=== PATIENT | female | born 1935 | race Caucasian/White ===

== ENCOUNTER → 2017-03-16 | Outpatient (CLI) | payer OTHER ==
[~2017-03-16] MED LIST: ALL60 PO; AMLO2.5T PO; ASPEC81 PO; FSM70 PO; HYDC25 PO; LRT5 PO; MULT-506 PO
--- NOTE | 2017-03-16 15:34 | MAMMOGRAPHY REPORT ---
BILATERAL DIGITAL SCREENING MAMMOGRAM WITH CAD: 03/16/2017 CLINICAL HISTORY: Routine screening. Patient has no complaints. TECHNIQUE: Current study was also evaluated with a Computer Aided Detection (CAD) system. Bilateral CC and MLO views were obtained. COMPARISON: Comparison is made to exams dated: 03/15/2016 mammogram, 03/12/2015 mammogram, 10/27/2013 ma mmogram, 10/25/2012 mammogram, 10/24/2011 mammogram, and 09/02/2010 mammogram - [facility] nter. BREAST COMPOSITION: There are scattered areas of fibroglandular density in both breasts. FINDINGS: No suspicious masses, calcifications, or areas of architectural distortion are noted in ei ther breast. There has been no significant interval change compared to prior exams. IMPRESSION: ACR BI-RADS CATEGORY 1: NEGATIVE There is no mammographic evidence of malignancy. A 1 year screening mammogram is recommended. The pa tient will receive written notification of the results. Approximately 10% of breast cancers are not detected with mammography. A negative mammographic report should not delay biopsy if a clinically suggestive mass is present. Negra Daly M.D. /:03/16/2017 14:57:00 [employer] Professor: Susy RAMSAY(Brittani)(Bud)(BD), [facility] letter sent: Normal 1/2 BI-RADS Code: ACR BI-RADS Category 1: Negative
== END | disposition home or self-care (01) ==
LOC: C.MAMM 13:04
PROVIDERS: ATTEND Family Medicine
DX: Z12.31 Encounter for screening mammogram for malignant neoplasm of breast (principal)

== ENCOUNTER 2023-11-21 12:46 | Inpatient (IN) ==
--- NOTE | 2023-11-21 13:38 | Emergency Department Note ---
History of Present Illness General Chief complaint: Fall Stated complaint: FALLS, WOUND ON LEG Time Seen by Provider: 11/21/23 13:19 Source: patient, RN notes reviewed and old records reviewed (11/15/23-wound care visit for venous insufficiency on the legs) Mode of arrival: EMS Limitations: no limitations History of Present Illness This patient is a 88-year-old female who was brought in by EMS after being found on her floor for 2 days. When I talked to her she seems to answer most questions appropriately but very vaguely so the history is uncertain. She is not sure how she was on the floor but says that she thinks was there for 2 days she called a friend to call the police. She is being treated for lower extremity ulcers with stasis. She is on Lasix. She feels weak all over but no focal or numbness weakness. no chest pain. No headache she is not sure if she hit her head or not denies abdominal pain. She says she is urinating a lot. No dark-colored urine. Home Medications Medication Instructions Recorded Confirmed Type calcium citrate 250 mg 1 tab PO BID 10/11/23 11/21/23 History calcium-vitamin D3 5 mcg (200 unit) tablet cyclosporine 0.05 % eye drops in a 1 drp ophthalmic (eye) Q12H 10/11/23 11/21/23 History dropperette (Restasis) epinephrine 0.3 mg/0.3 mL 0.3 mg IM Q4H PRN Allergic Reaction 10/11/23 11/21/23 History injection, auto-injector (EpiPen) furosemide 20 mg tablet 20 mg PO DAILY 10/11/23 11/21/23 History levothyroxine 50 mcg capsule 50 mcg PO Q OTHER DAY 10/11/23 11/21/23 History levothyroxine 75 mcg capsule 75 mcg PO Q OTHER DAY 10/11/23 11/21/23 History multivitamin 1 tab PO DAILY 10/11/23 11/21/23 History cephalexin 500 mg capsule 500 mg PO TID 10 days #30 caps 11/12/23 11/21/23 Rx Allergies Allergy/AdvReac Type Severity Reaction Status Date / Time Sulfa (Sulfonamide Allergy Mild Rash Unverified 11/15/23 14:26 Antibiotics) Past Med/Surg History Medical History (Updated 11/21/23 @ 18:26 by Martir Ocampo MD) Chronic pansinusitis Arthritis of hand Age-related osteoporosis without current pathological fracture Hypothyroidism Tubular adenoma History of colon polyps Sciatica Prediabetes HTN, goal below 150/90 Chronic nonallergic rhinitis Surgical History S/P radioactive iodine thyroid ablation Family History Other Hx musculoskeletal disorder Social History Smoking Status: Former smoker Smoking End Date: 1981; Hx Alcohol Use: No Hx Substance Use: No Preferred Language: German Communication Ability: Effective Visual Impairment: No Limitations Hearing Ability: Normal Digital Computer Operator Required: No Beliefs That Will Affect Care: None Current Living Situation: Alone current occupational status: disabled Feels Safe at Home: Yes Diet: diabetic and ideal protein Diet Comment: educated on increasing protein, vitamin c, d and zinc Assistive Devices: Walker Review of Systems A total of 10 systems reviewed and were otherwise negative Physical Exam Vital Signs Vital Signs - 24 hr 11/21/23 12:48 11/21/23 13:40 11/21/23 14:58 Temperature 35.7 C L Temperature Source Skin Pulse Rate 63 61 Pulse Rate [Apical] 51 L Pulse Rhythm [Apical] Regular Pulse Strength [Apical] Normal Respiratory Rate 18 16 Respiratory Effort / Characteristics Non-Labored Spontaneous Respiratory Depth Normal Respiratory Pattern Regular Blood Pressure 172/84 H Blood Pressure [Right Arm] 177/87 H Blood Pressure Mean 113 Blood Pressure Mean [Right Arm] 117 Pulse Oximetry 97 94 Oxygen Delivery Method Room Air Sepsis Recent Fever Within 48 Hours No Sepsis New/Unexplained Change in Mental Status No Sepsis Action Taken by Nursing No Action Required 11/21/23 14:59 Temperature Temperature Source Pulse Rate 63 Pulse Rate [Apical] Pulse Rhythm [Apical] Pulse Strength [Apical] Respiratory Rate 16 Respiratory Effort / Characteristics Respiratory Depth Respiratory Pattern Blood Pressure Blood Pressure [Right Arm] Blood Pressure Mean Blood Pressure Mean [Right Arm] Pulse Oximetry 94 Oxygen Delivery Method Room Air Sepsis Recent Fever Within 48 Hours Sepsis New/Unexplained Change in Mental Status Sepsis Action Taken by Nursing General: Well developed well nourished very slender older female who appears in no acute distress, breathing comfortably on room air. Normal speech, nonslurred. She does answer questions appropriately but vaguely HEENT: Normal cephalic atraumatic. Pupils are equal round and reactive to light. Extraocular movements are intact. Oropharynx is pink with moist mucous membranes. No swelling of the mouth lips or tongue. Neck: Supple with a midline trachea. No meningeal signs or stiffness, no JVD or bruits. No Stridor. Chest: Clear to auscultation bilaterally. No wheezes or rhonchi. No increased work of breathing. Heart: Regular rate and rhythm without murmurs or gallops. Abdomen: Soft nontender, nondistended without rebound guarding or rigidity. Extremities: No cyanosis clubbing. She does have some skin breakdown/blisters on her shins bilaterally no overt redness. No crepitus. She does have trace to 1+ lower extremity edema. Spine/Back. Non tender to palpation. No CVA tenderness Skin: Good turgor without rashes. Neurologic exam: Cranial nerves two through 12 are intact. Motor and sensation are intact and symmetrical throughout. Course Administered Medications Discontinued Medications Sodium Chloride (Nss) 250 mls @ 999 mls/hr IV .Q16M ONE Stop: 11/21/23 13:47 Last Infusion: 11/21/23 14:40 Dose: Infused Documented By: Admin: 11/21/23 14:11 Dose: 999 mls/hr Documented By: SUNG Ceftriaxone Sodium 2,000 mg/ (Dextrose) 50 mls @ 100 mls/hr IV NOW STA; Protocol Stop: 11/21/23 17:04 Last Admin: 11/21/23 17:01 Dose: 100 mls/hr Documented By: SUSAN Medical Decision Making Differential Diagnosis Rhabdomyolysis, fall, traumatic injuries, dehydration, electrolyte or metabolic abnormality, sepsis, CHF, intra-abdominal process, intracranial process Medical Records Attestation: I reviewed the patient's medical records. Home Medications Current Medication List: was personally reviewed by me Laboratory Data Attestation: I reviewed the patient's lab results. 11/21/23 13:15 11/21/23 13:15 Lab Results 11/21/23 11/21/23 Range/Units 13:15 14:45 WBC 7.41 (4.8-10.8) K/ul RBC 4.81 (4.20-5.40) M/uL Hgb 14.9 (12.0-16.0) g/dl Hct 45.1 (37.0-47.0) % MCV 93.8 (80.0-100.0) fL MCH 31.0 (25.0-34.0) pg MCHC 33.0 (32.0-36.0) g/dL RDW Std Deviation 50.1 H (36.4-46.3) fL RDW Coeff of Ghassan 14.6 H (11.5-14.5) % Plt Count 191 (130-400) K/uL MPV 10.7 (9.4-12.4) fL Immature Gran % (Auto) 1.9 % Neut % (Auto) 83.0 % Lymph % (Auto) 6.5 % [place] % (Auto) 7.6 % Eos % (Auto) 0.3 % Baso % (Auto) 0.7 % Neut # (Auto) 6.16 (1.40-6.50) K/uL Lymph # (Auto) 0.48 L (1.20-3.40) K/uL [place] # (Auto) 0.56 (0.11-0.59) K/uL Eos # (Auto) 0.02 (0.00-0.50) K/uL Baso # (Auto) 0.05 (0.00-0.20) K/uL Immature Gran # (Auto) 0.14 (0.01-0.20) K/uL Sodium 141 (136-145) mmol/L Potassium 3.5 (3.5-5.1) mmol/L Chloride 104 (98-107) mmol/L Carbon Dioxide 30 (21-32) mmol/L Anion Gap 7 (3-11) BUN 48 H (6-23) mg/dl Creatinine 1.00 (0.6-1.2) mg/dl Est Cr Clr Drug Dosing Not Reportable Est GFR ( Amer) 58.3 ml/min Est GFR (Non-Af Amer) 50.3 ml/min BUN/Creatinine Ratio 48.0 H (10-20) Glucose 112 H (70-99(Fasting)) mg/dl Lactate 1.4 (0.4-2.0) mmol/L Calcium 9.2 (8.6-10.3) mg/dl Magnesium 2.2 (1.7-2.4) mg/dl Total Bilirubin 0.7 (0.2-1.0) mg/dl Direct Bilirubin 0.1 (0-0.2) mg/dl AST 20 (13-39) U/L ALT 19 (7-52) U/L Alkaline Phosphatase 81 (34-104) U/L Total Creatine Kinase 71 (26-192) U/L Troponin I High Sens 14.3 H (0-14) pg/ml Total Protein 6.9 (6.0-8.3) gm/dl Albumin 3.5 (3.4-5.0) gm/dl Procalcitonin 0.35 (0-0.5) ng/ml TSH 22.399 H (0.300-4.500) uIu/ml Free T4 0.86 (0.61-1.60) ng/dl Urine Color Yellow Urine Appearance Clear (Clear) Urine pH 5.0 (4.5-7.5) Ur Specific [place] 1.010 (1.000-1.030) Urine Protein Negative (Negative) Urine Glucose (UA) Negative (Negative) Urine Ketones Negative (Negative) Urine Blood Negative (Negative) Urine Nitrite Negative (Negative) Urine Bilirubin Negative (Negative) Urine Urobilinogen Negative (Negative) Ur Leukocyte Esterase Negative (Negative) Imaging Data Attestation: I personally reviewed and interpreted this imaging study as follows: My Impression: Chest x-rayno acute infiltrate, failure, pneumothorax CT of the headhemorrhage or mass effect seen. Radiologist's Impression: Abdomen/Pelvis CT 11/21/23 13:30 CT OF THE ABDOMEN AND PELVIS WITHOUT CONTRAST CLINICAL HISTORY: fall, on floor X 2 days COMPARISON STUDY: No previous studies for comparison. TECHNIQUE: Axial images of the abdomen and pelvis were obtained without IV contrast. Images were reviewed in the axial, sagittal, and coronal planes. Automated exposure control was utilized for the study. A dose lowering technique was utilized adhering to the principles of ALARA. FINDINGS: This exam is significantly compromised from a technical standpoint due to difficulty positioning and lack of contrast. No hemoperitoneum or pneumoperitoneum is present. There is moderate elevation of the right hemidiaphragm. No definite evidence for traumatic injury to the solid abdominal viscera although sensitivity diminished on this exam. There is no free fluid. No evidence for a bowel obstruction. A Quick balloon within the bladder is present. Lumbar spine levoscoliosis is incidentally noted. No acute fractures identified within the visualized skeletal structures. IMPRESSION: Exam significantly compromised from a technical standpoint, as described above. However, no acute traumatic findings identified within the abdomen or pelvis. ACT 112: Negative or not required by law. Electronically signed by: Carlos Ferreira M.D. 11/21/2023 2:[address] 11/21/23 13:[address] DOSE: HISTORY: fall TECHNIQUE: Multiaxial CT images of the cervical spine were performed and reformatted in the sagittal and coronal plane without the use of contrast. A dose lowering technique was utilized adhering to the principles of ALARA. COMPARISON: None. FINDINGS: No acute fracture or subluxation within the cervical spine. Prevertebral soft tissues and the C1-C2 interval are intact. Mild to moderate degenerative changes within the cervical spine. There is a subacute to chronic mild superior endplate compression deformity at T3. IMPRESSION: 1. No fractures within the cervical spine. 2. A subacute to chronic mild superior endplate compression deformity at T3. ACT 112: Negative or not required by law. Electronically signed by: Augustine Kerr M.D. 11/21/2023 2:[address] 11/21/23 13:30 CT OF THE CHEST WITHOUT IV CONTRAST CLINICAL HISTORY: Fall. COMPARISON STUDY: Chest radiographs October 22, 2007 and chest radiograph performed earlier today. TECHNIQUE: Axial images of the chest were obtained without IV contrast. Images were reviewed in the axial, sagittal, and coronal planes. IV contrast was not administered for this examination. Automated exposure control was utilized for the study. A dose lowering technique was utilized adhering to the principles of ALARA. FINDINGS: This exam is compromised given difficulty positioning and lack of IV contrast. No mediastinal hematoma is identified. There is no evidence for traumatic injury to the thoracic aorta on unenhanced exam. No pericardial effusion is present. Moderate elevation of the right hemidiaphragm is noted. No pneumothorax or pleural effusion is present. There is no pulmonary contusion. Several old left-sided rib fractures noted. There is chronic deformity anterior inferior right chest wall. Mild loss of height of the superior endplates of T3, T4 and T5 are noted with sclerosis. Venous gas is likely related to IV insertion. The abdomen and pelvis CT will be reported separately. IMPRESSION: 1. Technically compromised exam given difficulty positioning. No acute traumatic findings within the chest. 2. Subacute to chronic mild T3, T4 and T5 compression fractures. Several old left-sided rib fractures. 3. Moderate elevation of the right hemidiaphragm. ACT 112: Negative or not required by law. Electronically signed by: Carlos Ferreira M.D. 11/21/2023 2:49 PM Chest X-Ray 11/21/23 13:30 PORTABLE SEMIERECT AP CHEST RADIOGRAPH CLINICAL HISTORY: Sepsis. COMPARISON STUDY: Chest radiograph October 22, 2007. FINDINGS: Exam is compromised given difficulty positioning. Mild elevation of the right hemidiaphragm has slightly increased. There is no evidence for pulmonary edema. No lobar consolidation is present. There is no pneumothorax or pleural effusion. IMPRESSION: No acute cardiopulmonary findings. Exam compromised from a technical standpoint due to difficulty positioning. ACT 112: Negative or not required by law. Electronically signed by: Carlos Ferreira M.D. 11/21/2023 2:[address] 11/21/23 13:30 CT SCAN OF THE BRAIN WITHOUT IV CONTRAST CLINICAL HISTORY: Fall. COMPARISON STUDY: No priors. TECHNIQUE: Unenhanced axial CT scan of the brain is performed from the vertex to the skull base. A dose lowering technique was utilized adhering to the principles of ALARA. The Examination is degraded by inability to properly position the patient within the CT gantry. FINDINGS: Brain parenchyma: There is age-related involutional change noting moderate to advanced confluent subcortical and periventricular microangiopathic disease. There is no hemorrhage, mass effect, or evidence of acute territorial ischemia by CT criteria. Bagley-white matter differentiation is preserved. No extra-axial fluid collection is seen. Ventricles, sulci, cisterns: Prominent secondary to involutional change. Intracranial vasculature: There is atherosclerotic calcification of the cavernous carotid and vertebral arteries. Calvarium: Unremarkable. Sinuses and mastoids: The visualized paranasal sinuses are clear. The mastoid air cells are well pneumatized. Orbits: The bony orbits are grossly intact. There are bilateral ocular lens implants. IMPRESSION: There is no hemorrhage, mass effect, or evidence of acute territorial ischemia by CT criteria. ACT 112: Negative or not required by law. Electronically signed by: Mainor Ortiz M.D. 11/21/2023 2:45 PM ECG Data Attestation: I personally reviewed and interpreted this ECG as follows: Indication: + weakness Rate (beats per minute): 54 Rhythm: + sinus bradycardia and + other (Poor baseline) ECG Intervals/blocks: + Normal QRS, + Normal QT and + Normal MA ECG [place]: + Normal ECG ST segments: + Normal ST segments ECG Findings: no PACs or no PVCs Comparison ECG Date: from (05/14/23) [facility] Narrative This patient comes in as described above. She was placed on a rn cardiac room A4. She is here for treatment and evaluation of weakness that she apparently was on the ground for 2 days she has a nonfocal neurologic exam she is being treated for swelling in her legs/vascular insufficiency I did review the wound care note. IV access was established he was gently hydrated with a 250 cc normal saline bolus to start. I was concerned he could be in rhabdo. Multiple blood testing was obtained also did hall trauma scans without contrast given my concern for possible rhabdo. Her inflammatory markers were not elevated to suggest sepsis. Her CK was also normal which would rule out rhabdomyolysis. Her CAT scan showed no traumatic injuries. Her BUN was elevated consistent with dehydration and her clinical picture. Her TSH was also low and it is possible her symptoms could be related to hypothyroidism .she does have edema and she seems a little confused this could be more of a myxedema picture ,I do think she needs to be admitted she certainly cannot be at home like this at this point with diffuse weakness. She has no focal numbness or weakness to suggest acute stroke or neurologic process. I have discussed case at length with the [facility] hospitalist and they will see her in the ER for admission/observation Continuous rn cardiac: Orders placed in EMR for continuous cart monitor: Upon my evaluation, the patient noted to be normal sinus rhythm rate of 70 Impression & Plan Weakness, Venous stasis ulcers of both lower extremities, Hypothyroidism, Acute dehydration, Fall Discharge Plan Visit Data Chief Complaint: Fall Stated Complaint: FALLS, WOUND ON LEG ED Provider: Martir Ocampo Discharge Problem: Weakness, Venous stasis ulcers of both lower extremities, Hypothyroidism, Acute dehydration, Fall Patient Disposition: Admitted As Inpatient Discharge Instructions Interventions: ED Discharge Assessment Last Done: 11/21/23 17:38 Discharge Problem: Hypothyroidism Qualifiers: Hypothyroidism type: unspecified Qualified Code(s): E03.9 - Hypothyroidism, unspecified Fall Qualifiers: Encounter type: initial encounter Qualified Code(s): W19.XXXA - Unspecified fall, initial encounter
[2023-11-21 13:50] LABS: Hematocrit (blood only) 45.1 % (37.0-47.0); Hemoglobin 14.9 g/dl (12.0-16.0); Mean Corpuscular Volume 93.8 fL (80.0-100.0); Mean Platelet Volume 10.7 fL (9.4-12.4); Platelet Count 191 K/uL (130-400); RDW Coefficient of Variation 14.6 % (11.5-14.5); RDW Standard Deviation 50.1 fL (36.4-46.3); Red Blood Count 4.81 M/uL (4.20-5.40); White Blood Count 7.41 K/ul (4.8-10.8)
[2023-11-21 14:05] LABS: Alanine Aminotransferase 19 U/L (7-52); Albumin Level 3.5 gm/dl (3.4-5.0); Alkaline Phosphatase 81 U/L (34-104); Anion Gap 7 (3-11); Aspartate Aminotransferase 20 U/L (13-39); Bilirubin Direct 0.1 mg/dl (0-0.2); Bilirubin,Total 0.7 mg/dl (0.2-1.0); Blood Urea Nitrogen 48 mg/dl (6-23); Calcium 9.2 mg/dl (8.6-10.3); Carbon Dioxide 30 mmol/L (21-32); Chloride 104 mmol/L (98-107); Creatine Kinase 71 U/L (26-192); Est GFR (African American) 58.3 ml/min; Est GFR (Non-African American) 50.3 ml/min; Glucose 112 mg/dl (70-99(Fasting)); Magnesium 2.2 mg/dl (1.7-2.4); Potassium 3.5 mmol/L (3.5-5.1); Sodium 141 mmol/L (136-145); Total Protein 6.9 gm/dl (6.0-8.3)
[2023-11-21 14:10] LABS: Basophils # (auto) 0.05 K/uL (0.00-0.20); Basophils % (auto) 0.7 %; Eosinophils # (auto) 0.02 K/uL (0.00-0.50); Eosinophils % (auto) 0.3 %; Immature Granulocytes # (auto) 0.14 K/uL (0.01-0.20); Immature Granulocytes % (auto) 1.9 %; Lymphocytes # (auto) 0.48 K/uL (1.20-3.40); Lymphocytes % (auto) 6.5 %; Monocytes # (auto) 0.56 K/uL (0.11-0.59); Monocytes % (auto) 7.6 %; Neutrophils # (auto) 6.16 K/uL (1.40-6.50); Troponin I High Sensitivity 14.3 pg/ml (0-14)
[2023-11-21] MEDS: SODIUM CHLORIDE 0.9% 250 ML IV ONE (14:11)
--- NOTE | 2023-11-21 14:11 | XRay Report ---
PORTABLE SEMIERECT AP CHEST RADIOGRAPH CLINICAL HISTORY: Sepsis. COMPARISON STUDY: Chest radiograph October 22, 2007. FINDINGS: Exam is compromised given difficulty positioning. Mild elevation of the right hemidiaphragm has slightly increased. There is no evidence for pulmonary edema. No lobar consolidation is present. There is no pneumothorax or pleural effusion. IMPRESSION: No acute cardiopulmonary findings. Exam compromised from a technical standpoint due to d ifficulty positioning. ACT 112: Negative or not required by law. Electronically signed by: Carlos Ferreira M.D. 11/21/2023 2:09 PM
[2023-11-21 14:19] LABS: Thyroid Stimulating Hormone 22.399 uIu/ml (0.300-4.500)
--- NOTE | 2023-11-21 14:46 | CT Scan Report ---
CT SCAN OF THE BRAIN WITHOUT IV CONTRAST CLINICAL HISTORY: Fall. COMPARISON STUDY: No priors. TECHNIQUE: Unenhanced axial CT scan of the brain is performed from the vertex to the skull base. A do se lowering technique was utilized adhering to the principles of ALARA. The Examination is degraded b y inability to properly position the patient within the CT gantry. FINDINGS: Brain parenchyma: There is age-related involutional change noting moderate to advanced confluent subc ortical and periventricular microangiopathic disease. There is no hemorrhage, mass effect, or evidenc e of acute territorial ischemia by CT criteria. Bagley-white matter differentiation is preserved. No ex tra-axial fluid collection is seen. Ventricles, sulci, cisterns: Prominent secondary to involutional change. Intracranial vasculature: There is atherosclerotic calcification of the cavernous carotid and vertebr al arteries. Calvarium: Unremarkable. Sinuses and mastoids: The visualized paranasal sinuses are clear. The mastoid air cells are well pneu matized. Orbits: The bony orbits are grossly intact. There are bilateral ocular lens implants. IMPRESSION: There is no hemorrhage, mass effect, or evidence of acute territorial ischemia by CT zen[place] hui. ACT 112: Negative or not required by law. Electronically signed by: Mainor Ortiz M.D. 11/21/2023 2:45 PM
--- NOTE | 2023-11-21 14:52 | CT Scan Report ---
CT OF THE CHEST WITHOUT IV CONTRAST CLINICAL HISTORY: Fall. COMPARISON STUDY: Chest radiographs October 22, 2007 and chest radiograph performed earlier today. TECHNIQUE: Axial images of the chest were obtained without IV contrast. Images were reviewed in the axial, sagittal, and coronal planes. IV contrast was not administered for this examination. Automat ed exposure control was utilized for the study. A dose lowering technique was utilized adhering to t he principles of ALARA. FINDINGS: This exam is compromised given difficulty positioning and lack of IV contrast. No mediasti nal hematoma is identified. There is no evidence for traumatic injury to the thoracic aorta on unenha nced exam. No pericardial effusion is present. Moderate elevation of the right hemidiaphragm is noted . No pneumothorax or pleural effusion is present. There is no pulmonary contusion. Several old left-s ided rib fractures noted. There is chronic deformity anterior inferior right chest wall. Mild loss of height of the superior endplates of T3, T4 and T5 are noted with sclerosis. Venous gas is likely rel ated to IV insertion. The abdomen and pelvis CT will be reported separately. IMPRESSION: 1. Technically compromised exam given difficulty positioning. No acute traumatic findings within the chest. 2. Subacute to chronic mild T3, T4 and T5 compression fractures. Several old left-sided rib fractures . 3. Moderate elevation of the right hemidiaphragm. ACT 112: Negative or not required by law. Electronically signed by: Carlos Ferreira M.D. 11/21/2023 2:49 PM
[2023-11-21 14:56] LABS: T4 Free Thyroxine 0.86 ng/dl (0.61-1.60)
--- NOTE | 2023-11-21 14:59 | CT Scan Report ---
CERVICAL SPINE CT CT DOSE: HISTORY: fall TECHNIQUE: Multiaxial CT images of the cervical spine were performed and reformatted in the sagittal and coronal plane without the use of contrast. A dose lowering technique was utilized adhering to e principles of ALARA. COMPARISON: None. FINDINGS: No acute fracture or subluxation within the cervical spine. Prevertebral soft tissues and t he C1-C2 interval are intact. Mild to moderate degenerative changes within the cervical spine. There is a subacute to chronic mild superior endplate compression deformity at T3. IMPRESSION: 1. No fractures within the cervical spine. 2. A subacute to chronic mild superior endplate compression deformity at T3. ACT 112: Negative or not required by law. Electronically signed by: Augustine Kerr M.D. 11/21/2023 2:57 PM
--- NOTE | 2023-11-21 14:59 | CT Scan Report ---
CT OF THE ABDOMEN AND PELVIS WITHOUT CONTRAST CLINICAL HISTORY: fall, on floor X 2 days COMPARISON STUDY: No previous studies for comparison. TECHNIQUE: Axial images of the abdomen and pelvis were obtained without IV contrast. Images were revi ewed in the axial, sagittal, and coronal planes. Automated exposure control was utilized for the melyssa dy. A dose lowering technique was utilized adhering to the principles of ALARA. FINDINGS: This exam is significantly compromised from a technical standpoint due to difficulty positi oning and lack of contrast. No hemoperitoneum or pneumoperitoneum is present. There is moderate eleva tion of the right hemidiaphragm. No definite evidence for traumatic injury to the solid abdominal vis cera although sensitivity diminished on this exam. There is no free fluid. No evidence for a bowel ob struction. A Quick balloon within the bladder is present. Lumbar spine levoscoliosis is incidentally noted. No acute fractures identified within the visualized skeletal structures. IMPRESSION: Exam significantly compromised from a technical standpoint, as described above. However, no acute traumatic findings identified within the abdomen or pelvis. ACT 112: Negative or not required by law. Electronically signed by: Carlos Ferreira M.D. 11/21/2023 2:58 PM
[2023-11-21 15:01] LABS: Appearance Urine Clear (Clear); Bilirubin Urine Negative (Negative); Blood Urine Negative (Negative); Color Urine Yellow; Glucose Urine UA Negative (Negative); Ketones Urine Negative (Negative); Leukocyte Esterase Urine Negative (Negative); Nitrite Urine Negative (Negative); Protein Urine Negative (Negative); Urobilinogen Urine Negative (Negative)
--- NOTE | 2023-11-21 15:37 | History & Physical Report ---
Date of Service November 21, 2023 Assessment & Plan (1) Weakness: (2) Confusion: (3) Venous stasis ulcers of both lower extremities: (4) HTN, goal below 150/90: Plan This is an 88yo F with a PMH of acquired hypothyroidism, HTN, prediabetes, sciatica, venous stasis ulcers of BLE with lymphedema who presents with worsening confusion, weakness and failure to thrive. PCP: G[facility] Please see Dr. Carvalho' addendum for plan details. I spent a total of 50 minutes coordinating, documenting, and providing care for this patient excluding time spent in the performance of separately billed services. History of Present Illness Chief Complaint: confusion, falls Primary Care Provider: Marina Nieto MD This is an 88yo F with a PMH of acquired hypothyroidism, HTN, prediabetes, sciatica, venous stasis ulcers of BLE with lymphedema who presents with worsening confusion and weakness. Patient is not a reliable historian and therefore history obtained from chart review. Patient lives alone and it has been noted in recent outpatient wound care notes that patient seems to have short term memory loss and there is safety concern regarding her living alone. Office of Aging has been contacted. Reportedly called her friend who called police to bring patient in today after she down on the ground for 2 days per patient. Follows with wound care for chronic venous stasis ulcers in setting of lymphedema. When asked how patient arrived in ED, she does not have a clear idea. Reports syncopal episode at wound care but became distracted and could not finish her thought. Very concerned that her current antibiotic cannot be given in the hospital. Is oriented to self but is unsure of place, time or situation. Outpatient documentation with theme of concern for patient's competence and safety remaining alone at home. Does not seem to be eating. Denies any current pain. In outpatient EMR, patient weighed 83.9 kg in 10/2023, now 34.4 kg on admission. Remainder of ROS unobtainable due to reduced cognitive state. Allergies Allergy/AdvReac Type Severity Reaction Status Date / Time Sulfa (Sulfonamide Allergy Mild Rash Unverified 11/15/23 14:26 Antibiotics) Home Medications Medication Instructions Recorded Confirmed Type calcium citrate 250 mg 1 tab PO BID 10/11/23 11/21/23 History calcium-vitamin D3 5 mcg (200 unit) tablet cyclosporine 0.05 % eye drops in a 1 drp ophthalmic (eye) Q12H 10/11/23 11/21/23 History dropperette (Restasis) epinephrine 0.3 mg/0.3 mL 0.3 mg IM Q4H PRN Allergic Reaction 10/11/23 11/21/23 History injection, auto-injector (EpiPen) furosemide 20 mg tablet 20 mg PO DAILY 10/11/23 11/21/23 History levothyroxine 50 mcg capsule 50 mcg PO Q OTHER DAY 10/11/23 11/21/23 History levothyroxine 75 mcg capsule 75 mcg PO Q OTHER DAY 10/11/23 11/21/23 History multivitamin 1 tab PO DAILY 10/11/23 11/21/23 History cephalexin 500 mg capsule 500 mg PO TID 10 days #30 caps 11/12/23 11/21/23 Rx Past Med/Surg History Medical History (Updated 11/21/23 @ 16:58 by Brissa Crawford PA-C) Chronic pansinusitis Arthritis of hand Age-related osteoporosis without current pathological fracture Hypothyroidism Tubular adenoma History of colon polyps Sciatica Prediabetes HTN, goal below 150/90 Chronic nonallergic rhinitis Surgical History S/P radioactive iodine thyroid ablation Family History Other Hx musculoskeletal disorder Social History Smoking Status: Former smoker Smoking End Date: 1981; Hx Alcohol Use: No Hx Substance Use: No Preferred Language: Pashto Communication Ability: Effective Visual Impairment: No Limitations Hearing Ability: Normal [employer] Required: No Beliefs That Will Affect Care: None Current Living Situation: Alone current occupational status: disabled Feels Safe at Home: Yes Diet: diabetic and ideal protein Diet Comment: educated on increasing protein, vitamin c, d and zinc Assistive Devices: Walker Review of Systems Review of Systems: Unobtainable due to cognitive status Physical Exam Physical Exam: General Appearance: vitals as above, appears cachectic with temporal wasting, NAD, confused, difficult to redirect Head: normocephalic, atraumatic Eyes: normal inspection, PERRL, conjunctivae normal, anicteric sclerae ENT: external ear and nose normal, dry mucous membranes of oropharynx Neck: normal visual inspection, trachea midline, no thyromegaly Respiratory: normal respiratory effort, lungs clear to auscultation, no wheeze, rales, rhonchi. No accessory muscle use Cardiovascular: regular rate, rhythm, no murmur, normal peripheral pulses, no BLE edema Chest: normal inspection of chest Abdomen/GI: normal bowel sounds, soft, nontender, no hepatosplenomegaly Extremities/Musculoskeletal: no cyanosis or clubbing, extremities motor strength 5/5. BLE with 1+ edema, skin tears, RLE with Tubigrip- type bandage, appears soiled Neurologic: PERRL, EOMI, accommodation nl, no face palsy, no dysarthria, CN's II-XI intact bilaterally and moves all extremities Psychiatric: A+Ox1, anxious Skin: no rashes, normal color, warm/dry Results & Data Results & Data Vital Signs (Past 12 Hours) Vital Signs Temp Pulse Pulse Resp BP BP Pulse Ox 11/21/23 14:59 63 16 94 11/21/23 14:58 51 L 16 177/87 H 94 11/21/23 13:40 61 11/21/23 12:48 35.7 C L 63 18 172/84 H 97 O2 Del Method 11/21/23 14:59 Room Air 11/21/23 14:58 Room Air 11/21/23 13:40 11/21/23 12:48 Laboratory Results Short CBC 11/21/23 Range/Units 13:15 WBC 7.41 (4.8-10.8) K/ul Hgb 14.9 (12.0-16.0) g/dl Hct 45.1 (37.0-47.0) % Plt Count 191 (130-400) K/uL BMP 11/21/23 13:15 Sodium 141 Potassium 3.5 Chloride 104 Carbon Dioxide 30 BUN 48 H Creatinine 1.00 Glucose 112 H Calcium 9.2 Cardiac Enzymes 11/21/23 Range/Units 13:15 Total Creatine Kinase 71 (26-192) U/L Liver Function 11/21/23 Range/Units 13:15 Total Bilirubin 0.7 (0.2-1.0) mg/dl Direct Bilirubin 0.1 (0-0.2) mg/dl AST 20 (13-39) U/L ALT 19 (7-52) U/L Alkaline Phosphatase 81 (34-104) U/L Albumin 3.5 (3.4-5.0) gm/dl Urine 11/21/23 Range/Units 14:45 Urine Color Yellow Urine Appearance Clear (Clear) Urine pH 5.0 (4.5-7.5) Ur Specific [place] 1.010 (1.000-1.030) Urine Protein Negative (Negative) Urine Glucose (UA) Negative (Negative) Diagnostic Findings Abdomen/Pelvis CT 11/21/23 13:30 CT OF THE ABDOMEN AND PELVIS WITHOUT CONTRAST CLINICAL HISTORY: fall, on floor X 2 days COMPARISON STUDY: No previous studies for comparison. TECHNIQUE: Axial images of the abdomen and pelvis were obtained without IV contrast. Images were reviewed in the axial, sagittal, and coronal planes. Automated exposure control was utilized for the study. A dose lowering technique was utilized adhering to the principles of ALARA. FINDINGS: This exam is significantly compromised from a technical standpoint due to difficulty positioning and lack of contrast. No hemoperitoneum or pneumoperitoneum is present. There is moderate elevation of the right hemidiaphragm. No definite evidence for traumatic injury to the solid abdominal viscera although sensitivity diminished on this exam. There is no free fluid. No evidence for a bowel obstruction. A Quick balloon within the bladder is present. Lumbar spine levoscoliosis is incidentally noted. No acute fractures identified within the visualized skeletal structures. IMPRESSION: Exam significantly compromised from a technical standpoint, as described above. However, no acute traumatic findings identified within the abdomen or pelvis. ACT 112: Negative or not required by law. Electronically signed by: Carlos Ferreira M.D. 11/21/2023 2:[address] 11/21/23 13:[address] DOSE: HISTORY: fall TECHNIQUE: Multiaxial CT images of the cervical spine were performed and reformatted in the sagittal and coronal plane without the use of contrast. A dose lowering technique was utilized adhering to the principles of ALARA. COMPARISON: None. FINDINGS: No acute fracture or subluxation within the cervical spine. Prevertebral soft tissues and the C1-C2 interval are intact. Mild to moderate degenerative changes within the cervical spine. There is a subacute to chronic mild superior endplate compression deformity at T3. IMPRESSION: 1. No fractures within the cervical spine. 2. A subacute to chronic mild superior endplate compression deformity at T3. ACT 112: Negative or not required by law. Electronically signed by: Augustine Kerr M.D. 11/21/2023 2:[address] 11/21/23 13:30 CT OF THE CHEST WITHOUT IV CONTRAST CLINICAL HISTORY: Fall. COMPARISON STUDY: Chest radiographs October 22, 2007 and chest radiograph performed earlier today. TECHNIQUE: Axial images of the chest were obtained without IV contrast. Images were reviewed in the axial, sagittal, and coronal planes. IV contrast was not administered for this examination. Automated exposure control was utilized for the study. A dose lowering technique was utilized adhering to the principles of ALARA. FINDINGS: This exam is compromised given difficulty positioning and lack of IV contrast. No mediastinal hematoma is identified. There is no evidence for traumatic injury to the thoracic aorta on unenhanced exam. No pericardial effusion is present. Moderate elevation of the right hemidiaphragm is noted. No pneumothorax or pleural effusion is present. There is no pulmonary contusion. Several old left-sided rib fractures noted. There is chronic deformity anterior inferior right chest wall. Mild loss of height of the superior endplates of T3, T4 and T5 are noted with sclerosis. Venous gas is likely related to IV insertion. The abdomen and pelvis CT will be reported separately. IMPRESSION: 1. Technically compromised exam given difficulty positioning. No acute traumatic findings within the chest. 2. Subacute to chronic mild T3, T4 and T5 compression fractures. Several old left-sided rib fractures. 3. Moderate elevation of the right hemidiaphragm. ACT 112: Negative or not required by law. Electronically signed by: Carlos Ferreira M.D. 11/21/2023 2:49 PM Chest X-Ray 11/21/23 13:30 PORTABLE SEMIERECT AP CHEST RADIOGRAPH CLINICAL HISTORY: Sepsis. COMPARISON STUDY: Chest radiograph October 22, 2007. FINDINGS: Exam is compromised given difficulty positioning. Mild elevation of the right hemidiaphragm has slightly increased. There is no evidence for pulmonary edema. No lobar consolidation is present. There is no pneumothorax or pleural effusion. IMPRESSION: No acute cardiopulmonary findings. Exam compromised from a technical standpoint due to difficulty positioning. ACT 112: Negative or not required by law. Electronically signed by: Carlos Ferreira M.D. 11/21/2023 2:[address] 11/21/23 13:30 CT SCAN OF THE BRAIN WITHOUT IV CONTRAST CLINICAL HISTORY: Fall. COMPARISON STUDY: No priors. TECHNIQUE: Unenhanced axial CT scan of the brain is performed from the vertex to the skull base. A dose lowering technique was utilized adhering to the principles of ALARA. The Examination is degraded by inability to properly position the patient within the CT gantry. FINDINGS: Brain parenchyma: There is age-related involutional change noting moderate to advanced confluent subcortical and periventricular microangiopathic disease. There is no hemorrhage, mass effect, or evidence of acute territorial ischemia by CT criteria. Bagley-white matter differentiation is preserved. No extra-axial fluid collection is seen. Ventricles, sulci, cisterns: Prominent secondary to involutional change. Intracranial vasculature: There is atherosclerotic calcification of the cavernous carotid and vertebral arteries. Calvarium: Unremarkable. Sinuses and mastoids: The visualized paranasal sinuses are clear. The mastoid air cells are well pneumatized. Orbits: The bony orbits are grossly intact. There are bilateral ocular lens implants. IMPRESSION: There is no hemorrhage, mass effect, or evidence of acute territorial ischemia by CT criteria. ACT 112: Negative or not required by law. Electronically signed by: Mainor Ortiz M.D. 11/21/2023 2:45 PM Supervising Physician Co-Signing Physician Notes I have seen and discussed the case with the collaborating advanced practitioner. I agree with the above H&P. I have reviewed and confirmed the patients medical history, the findings on physical examination, and the patients diagnosis and treatment plan with Ty LONDON and agree with the information documented. Ms. Moreau is an 88 year old woman with history of hypothyroidism, venous stasis ulcers, and other issues below admitted for failure to thrive and confusion. Multiple physicians noted concern about patient's ability to thrive and care for self. GENERAL APPEARANCE: AxOx1, HEENT: NC, AT. MMM. EOMI, clear conjunctiva, oropharynx clear. NECK: Supple without lymphadenopathy. No stiffness or restricted ROM. HEART: Normal rate and regular rhythm, normal S1/S1, no m/r/g LUNGS: CTAB, moving air well. No crackles or wheezes are heard. ABDOMEN: Soft, nontender, nondistended with good bowel sounds heard. BACK: No CVAT, no obvious deformity. EXTREMITIES: Without cyanosis, clubbing or edema. NEUROLOGICAL: Grossly nonfocal. Alert and oriented, moving all 4 extremities. CN not formally tested but appear grossly intact. Observed to ambulate with normal gait. Skin: Warm and dry without any rash. : Imaging revealed no acute findings on CT AB/P, CT cervical/chest imaging with subacute compression fracture at T3, T4, T5 #Unintentional weight loss #Failure to thrive #Severe protein calorie malnutrition Bedside swallow, bite sized diet 83.9 kilos in 10/2023, now 34.4 kilos on admission -Video Intern to see -CT imaging not revealing of any occult process -Alert to self on exam--multiple discussions regarding concern for patient's ability to care for self within wound care clinic and OP chart -Case management to help with placement discussions -No point of contact in record #Hypothyroidism s/p thyroid ablation TSH on 11/07 49.80, on admission 22.399 -Alternating 50mcg and 75mcg per OP records -Will continue PO 75mcg at this time. #Venous stasis ulcers #Lower extremity edema #Bilateral lower extremity cellulitis Multiple skin tears on RLE, LLE wrapped in what appears to be dirty/soiled bandage, erythema around skin tears Last seen in wound care clinic on 11/14, encouraged to continue keflex Completed course of 10 days on keflex in 09/2023, then received rocephin in urgent care on 11/06 then prescribed clindamycin Wound Care consult CTX q24 -Venous reflux studies pending 12/24/2023 -Given progressive confusion will obtain ECHO Hold home lasix MRSA and pro fabiola #Osteoporosis #Severe scoliosis #DJD of spine Tylenol prn Continue home Ca-D supplementation #History of HTN Amlodipine discontinued 2/2 relative hypotension Will monitor for goal < 160 #Prediabetes A1C 6.0% on 11/08/2023 CTM, no SSI at this time DVT heparin I spent a total of 45 minutes coordinating, documenting, and providing care for this patient excluding time spent in the performance of separately billed services. All of the aforementioned completed outside of collaborating with the assigned advanced practitioner for a full treatment plan. I have reviewed the advanced practitioner's documentation, and I agree with, and take responsibility for the plan of care
[2023-11-21] MEDS: cefTRIAXone SODIUM 2,000 MG in DEXTROSE 5 % MINI-B 50 ML IV STA (17:01)
[2023-11-21] MEDS ORDERED: ONDANSETRON INJ 2 MG/ML 2 ML VIAL IV PRN (17:37)
[2023-11-21] MEDS ORDERED: POLYETHYLENE (MIRALAX) 17 GM PACK PO PRN (17:37)
[2023-11-21] MEDS ORDERED: ACETAMINOPHEN 325 MG TAB PO PRN (17:37)
[2023-11-21] MEDS ORDERED: ARTIFICIAL TEARS OP PRN (17:41)
[2023-11-21] MEDS ORDERED: OLANZapine ZYDIS 5 MG ORALLY DIS. TAB PO PRN (17:52)
--- NOTE | 2023-11-21 19:36 | Electrocardiogram Report ---
Test Reason : Blood Pressure : / mmHG Vent. Rate : 054 BPM Atrial Rate : 000 BPM P-R Int : 000 ms QRS Dur : 090 ms QT Int : 396 ms P-R-T Axes : 000 -25 052 degrees QTc Int : 375 ms Poor data quality, interpretation may be adversely affected probably sinus rhythm Possible Lateral infarct , age undetermined Abnormal ECG Confirmed by Rony Shepherd ([id number]) on 11/21/2023 7:36:17 PM Referred By: REFERRED SELF Confirmed By:Ivan Shepherd
[2023-11-21] MEDS: CALCIUM 600MG + VIT D 400 IU TAB PO SCH (21:08)
[2023-11-21] MEDS: HEPARIN SOD 5,000 UNIT/0.5 ML VIAL SQ SCH (21:10)
--- OUTSIDE RECORDS SUMMARY | 2023-11-21 23:33 | External Medical Summary | Summary of Care ---
Author Name Unknown Organization [facility] Address [address] [place] [address] Phone [phone] Care Team Providers Care Slime Plant Operator Name Role Phone Marina Nieto MD Primary Care Provider [phone] Reason for Visit * Reason Comments Outpatient Testing Encounter Details Date Type Department Care Team (Late st Contact Info) Description 11/08/2023 2:20 PM EDT Laboratory Laboratory [facility] [address] [place] [address] [place] [address] [facility] [address] [facility] [place] [address] Loss of weight; Acquired hypothyroidism; Prediabetes; Bilateral lower extremity edema Allergies Active Allergy Reactions Criticality Noted Date Comments Bee Venom 02/27/2014 Sulfa Antibiotics Rash 04/16/2001 Wasp Venom Edema Other High 02/02/2015 documented as of this encounter (statuses as of 11/08/2023) Medications Medication Sig Dispensed Refills Start Date End Date Status MULTIVITAMINS PO TABS 30 0 11/25/2007 Active CITRACAL/VITAMIN D 250-200 MG-UNIT PO TABSIndications:Oth er specified prophylactic or treatment measure 2 TABLETS TWICE DAILY 60 Tab 0 06/15/2010 Active EPINEPHrine, anaphylaxis, (EPIPEN 2-KEN) 0.3 MG/0.3ML SOAJIndications:Bee sting allergy For a severe reaction: Place orange end against the outer thigh, press firmly, hold in place for 10 seconds and go to the Emergency room. 2 Device 1 02/02/2015 Active cycloSPORINE 0.05 % Ophthalmic Emulsion (Restasis) Instill 1 Drop into both eyes in the morning and 1 Drop before bedtime. 60 Each 1 04/28/2023 Active Nystatin 858918 UNIT/GM External CreamIndications:Ca ndida albicans infection Apply topically to affected area 2 times a day. To affacted area for two weeks. 30 g 2 05/01/2023 Active Levothyroxine Sodium 50 MCG Oral Tablet (Levoxyl) Take 1 Tablet by mouth every other day. Alternating with 75mcg 45 Tablet 0 10/17/2023 Active Levothyroxine Sodium 75 MCG Oral Tablet (Levoxyl) Take 1 Tablet by mouth every other day. 45 Tablet 0 10/17/2023 Active Furosemide 20 MG Oral Tablet (Lasix)Indications: Bilateral lower extremity edema Take 1 Tablet by mouth in the morning. 30 Tablet 0 10/17/2023 Active Clindamycin HCl 300 MG Oral CapsuleIndications: Cellulitis of left lower extremity Take 1 Capsule by mouth in the morning and 1 Capsule at noon and 1 Capsule in the evening and 1 Capsule before bedtime. Do all this for 10 days. 40 Capsule 0 11/07/2023 11/17/2023 Active documented as of this encounter (statuses as of 11/08/2023) Active Problems Problem Noted Date Diagnosed Date Chronic pansinusitis 10/06/2022 Age-related osteoporosis wit hout current pathological fracture 05/03/2020 Arthritis of hand 05/03/2020 Prediabetes 01/11/2015 Sciatica 01/11/2015 History of colon polyps 01/04/2015 Overview: Tubular adenoma S/P radioactive iodine thyroid ablation 01/24/20 13 HTN, goal below 150/90 11/08/2010 CHRONIC NONALLERGIC RHINITIS 08/04/2003 Hypothyroidism Overview: post ablation documented as of this encounter (statuses as of 11/08/2023) Resolved Problems Problem Noted Date Diagnosed Date Resolved Date Other atherosclerosis of lona timmy arteries of extremities, bilateral legs 10/17/2018 09/20/2022 Tubular adenoma of colon 01/11/2015 Sprain or strain of cervical spine 01/11/2015 11/26/2015 Rectal bleed 01/11/2015 03/18/2018 Hyperthyroidism 01/23/2013 11/28/2013 Rheumatic fever 12/08/2010 05/27/2019 Overview: acute Other osteoporosis without c urrent pathological fracture 11/08/2010 11/26/2015 Overview: ICD-10 update of inactive term Cough 08/08/2002 03/18/2018 Hyperthyroidism 05/03/2020 Overview: s/p RIT documented as of this encounter (statuses as of 11/08/2023) Immunizations Name Administration Dates Next Due COVID-19 mRNA, LNP-s, No Pre serve, 2-Dose Series (Moderna) 10/15/2020,09/17/2020 COVID-19, mRNA, LNP-s, PF, B ooster, 100mcg/0.5mg (Moderna) 01/30/2022,06/27/2021 Covid-19, Mrna, Lnp-s, Pf, B ivalent, 50 Mcg, IM, 12 yrs and above (Moderna) 06/05/2022 Pneumococcal Conjugate Vacc, 13 Valent (Prevnar) 11/26/2015 Season Influenza, Quad, PF, Adjuvanted, 65+ Yrs, IM (FLUAD) 04/20/2020 Seasonal Influenza, PF, 6 M & above, IM , (FluLaval or Fluzone) 04/21/2019,05/09/2018 Seasonal Influenza, Quadriva lent Hd (Fluzone Hd) 05/24/2023,05/11/2022,05/06/2021 Seasonal Influenza, Quadriva lent, No Preserve, IM 04/24/2017,05/10/2016,05/10/2015 05/10/2017 Seasonal Influenza, Split, I IV3, With Preserve, Inj 05/19/2014,05/02/2013,05/30/2012,05/02,05/17/2010,05/12/2009,05/19/2008 ,06/10/2007,06/13/2006 05/12/2010 TDAP (age 10 and older)(Boostrix) 10/16/2012 documented as of this encounter Social History Tobacco Use Types Packs/Day Years Used Date Smoking Tobacco: Former Cigarettes 1.5 13 0 08/06/1968 - 08/06/1981 Smokeless Tobacco: Never Alcohol Use Standard Drinks/Week Comments No 0 (1 standard drink = 0.6 oz pur e alcohol) PHQ-2 Answer Date Recorded PHQ Adult Total Score 0 09/20/2022 Hunger Vital Sign Answer Date Recorded Within the past 12 months, y ou worried that your food would run out before you got the money to buy more. Never true 12/17/19 22 Within the past 12 months, t he food you bought just didn't last and you didn't have money to get more. Never true 12/16/2021 Sex and Gender Information Value Date Recorded Sex Assigned at Female 06/02/2019 1:34 PM EDT Gender Identity Female 06/02/2019 1:34 PM EDT Sexual Orientation Straight 05/20/2021 9: 26 PM EDT Job Start Date Occupation Industry Not on file Not on file Not on file documented as of this encounter Plan of Treatment Upcoming Encounters Date Type Department Care Team (Late st Contact Info) Description 11/30/2023 1:30 PM EDT Cardiac Studies Cardiac Studies, [facility] [address] [facility] [place] [address] Pending Results Name Type Priority Associated Diagnoses Date /Time COMPREHENSIVE METABOLIC PANEL Lab Routine Loss of weight 11/08/2023 2:45 PM EDT TSH WITH FREE T4 IF INDICATED Lab Routine Acquired hypothyroidism 11/08/2023 2:45 PM EDT HEMOGLOBIN A1C Lab Routine Prediabetes 11/08/2023 2:45 PM EDT Health Maintenance Due Date Last Done Comments Zoster Vaccines (1 of 2) 1985 DTaP,Tdap,and Td Vaccines (2 - Td or Tdap) 10/16/2022 10/16/2012, 01/01/2004 DXA Scan 12/27/2022 12/27/2020, 12/04, 12/14/2014, Additional history exists COVID-19 Vaccine ( season) 2023 06/05/2022, 01/30/2022, 06/27/2021, Additional history exists Depression Screening 09/20/2023 09/20/2022 TSH 09/20/2023 09/20/2022, 12/04, 05/06/2021, Additional history exists HbA1c 03/23/2024 03/23/2023, 12/04, 05/06/2021, Additional history exists Albumin/Creatinine Ratio 12/19/2024 12/19/2021 Pneumococcal Vaccine: 65+ Years Completed 11/26/2015, 09/23/2001 VITAMIN D LEVEL ONCE IN A LIFETIME-USE SMARTSET# [id number] Completed 09/20/2022, 05/06/2021, 11/26/2015, Additional history exists Influenza Vaccine (FLU shot) Completed , 05/11/2022, 05/06/2021, Additional history exists GARDASIL-HPV IMMUNIZATION SERIES Aged Out No longer eligible based on patient's age to complete this topic Hepatitis B Aged Out No longer eligi ble based on patient's age to complete this topic MENINGOCOCCAL (MENACTRA/MENVEO) Aged Out No longer eligible based on patient's age to complete this topic documented as of this encounter Medical Devices Not on filedocumented as of this encounter Procedures Procedure Name Priority Date/Time Associated Diagnosis Comments CBC Routine 11/08/2023 2:45 PM EDT Loss of weight documented in this encounter Results * (ABNORMAL) CBC (11/08/2023 2:45 PM EDT) WBC 3.97(L) 4.00 - 10.80 K/uL 11/08/2023 2:52 PM EDT [facility]- RBC 4.25 3.85 - 5.15 M/uL 11/08/2023 2:52 PM EDT [facility] 56- HGB 13.3 12.0 - 15.3 g/dL 11/08/2023 2:52 PM EDT [facility] 56- HCT 42.3 36.0 - 45.2 % 11/08/2023 2:52 PM EDT [facility] 56- MCV 99.5 81.5 - 97.5 fL 11/08/2023 2:52 PM EDT [facility] 56- MCH 31.3 27.0 - 34.0 pg 11/08/2023 2:52 PM EDT [facility] 56- MCHC 31.4 32.0 - 36.0 g/dL 11/08/2023 2:52 PM EDT [facility] 56 RDW 15.3 11.5 - 15.5 % 11/08/2023 2:52 PM EDT [facility] PLT 200 140 - 400 K/uL 11/08/2023 2:52 PM EDT [facility] 56 MPV 9.7 6.6 - 11.1 fL 11/08/2023 2:52 PM EDT [facility] Blood Venous blood specimen / Unknown Venipuncture / Unknown 11/08/2023 2:45 PM EDT 11/08/2023 2:45 PM EDT Marina Nieto MD LAB BLOOD ORDERABLES [facility] [address] [facility] [address] documented in this encounter Visit Diagnoses Diagnosis Loss of weight Acquired hypothyroidism Unspecified hypothyroidism Prediabetes Other abnormal glucose Bilateral lower extremity edema Edema documented in this encounter Advance Directives Latest Code Status on File Code Status Date Activated Date Inactivated Comments Full Code 01/14/2018 9:12 AM 01/14/2018 5:33 PM This order reflects the patients wishes and were consensually agreed upon. Care Teams Slime Plant Operator Relationship Specialty Start Date End Date [facility] [address] [facility] [address] P[facility] - General Internal Medicine 03/18/21 documented as of this encounter
--- OUTSIDE RECORDS SUMMARY | 2023-11-21 23:34 | External Medical Summary | Summary of Care ---
Author Name Unknown Organization [facility] Address [address] [place] [address] Phone [phone] Care Team Providers Care Preparole Counseling Aide Name Role Phone Marina Nieto MD Primary Care Provider [phone] Reason for Referral * Evaluate & Treat - Unlimited Visits (Within 3 days (urgent)) - Authorized Specialty Diagnoses / Procedures Referred By Contac t Referred To Contact HOME CARE / Home Care Diagnoses Cellulitis of left lower extremity Ventura Romeo PA-C [address] [place] [address] Referral ID Status Reason Start Date Expiration Date Visits Requested Visits Authorized [id number] Authorized Specialty Services Required 11/07/[phone] Question Answer Referral Priority Within 3 days (urgent) Where should this appointment be scheduled? [facility] Comments Do not think patient will be able to change dressings regularly, per her limited mobility. Does not have anyone else at home and denies having anyone that can help her with dressing changes. * Evaluate & Treat - Unlimited Visits (Within 3 days (urgent)) - Authorized Specialty Diagnoses / Procedures Referred By Contkathleen t Referred To Contact Family Medicine Diagnoses Cellulitis of left lower extremity Ventura Romeo PA-C [address] [place] [id number] Referral ID Status Reason Start Date Expiration Date Visits Requested Visits Authorized [id number] Authorized Specialty Services Required 11/07/[phone] Question Answer Referral Priority Within 3 days (urgent) Where should this appointment be scheduled? [facility] Reason for Visit * Reason Comments Other Redness/bubbling/swe lling L lower leg x Sep Encounter Details Date Type Department Care Team (Latest Contact Info) Description 11/07/2023 4:00 PM EDT [facility] [address] [place] [address] Ventura Romeo PA-C [address] [facility] [place] [address] Cellulitis of left lower extremity* Allergies Active Allergy Reactions Criticality Noted Date Comments Bee Venom 02/27/2014 Sulfa Antibiotics Rash 04/16/2001 Wasp Venom Edema Other High 02/02/2015 documented as of this encounter (statuses as of 11/07/2023) Medications Medication Sig Dispensed Refills Start Date [...] bedtime. 60 Each 1 04/28/2023 Active Nystatin [id number] UNIT/GM External CreamIndications:Ca ndida albicans infection Apply [...] days. 40 Capsule 0 11/07/2023 11/17/2023 Active Hospital, Clinic, or Other Facility Administered Medication Ordered Dose Route Frequency Start Date End Date Status cefTRIAXone (Rocephin) inj 1 gIndications:Cellulitis of left lower extremity 1 g IM ONCE 11/07/2023 11/07/2023 E nded documented as of this encounter (statuses as of 11/07/2023) Active Problems Problem Noted Date Diagnosed Date Chronic pansinusitis 10/06/2022 Age-related osteoporosis wit hout current pathological fracture 05/03/2020 Arthritis of hand 05/03/2020 Prediabetes 01/11/2015 Sciatica 01/11/2015 History of colon polyps 01/04/2015 Overview: Tubular adenoma S/P radioactive iodine thyroid ablation 01/24/20 13 HTN, goal below 150/90 11/08/2010 CHRONIC NONALLERGIC RHINITIS 08/04/2003 Hypothyroidism Overview: post ablation documented as of this encounter (statuses as of 11/07/2023) Resolved Problems Problem Noted Date Diagnosed Date [...] as of this encounter (statuses as of 11/07/2023) Immunizations Name Administration Dates Next Due COVID-19 [...] 0 [birth year]/06/1968 - 08/06/1981 Smokeless Tobacco: Never Tobacco Cessation:Counseling Given: Not Answered Alcohol Use Standard Drinks/Week Comments No 0 [...] on file documented as of this encounter Last Filed Vital Signs Vital Sign Reading Time Taken Comments Blood Pressure 110/60 11/07/2023 4:14 PM EDT Pulse 61 11/07/2023 4:14 PM EDT Temperature 36.3 C (97.4 F) 11/07/2023 4:14 PM ED T Respiratory Rate 16 11/07/2023 4:14 PM EDT Oxygen Saturation 95% 11/07/2023 4:14 PM EDT Inhaled Oxygen Concentration - - Weight - - Height - - Body Mass Index - - documented in this encounter Patient Instructions * Patient Instructions* Ventura Romeo PA-C - 11/07/2023 4:26 PM EDT Take all antibiotic even if symptoms improve sooner. Stopping early increases risk of antibiotic resistance and returning infection. While wound is weeping, Change dressing daily. Warm compresses multiple times a day. You may use ibuprofen and/or tylenol for pain. Follow-up with PCP in 3 days; sooner (or return) to be evaluated with any change/worsening symptoms. To the ED if acutely worsens. PATIENT INSTRUCTIONS: FOLLOW-UP Contact PCP for appointment within 2-3 days. If you are unable to reach your PCP, you can return [facility] for re-evaluation. When you start treatment, the cellulitis (soft tissue infection) may initially worsen for a day before it stabilizes then starts to improve. You may notice continued fever, fatigue, feeling ill and some increase in redness for the first 24 hours. However, if you developworsening redness (significantly beyond the borders marked at your visit today), severe pain, high fevers or shaking chills, please go the nearest ER for evaluation. GENERAL RECOMMENDATIONS If you were prescribed an antibiotic, please finish all of it as directed - do not stop before finished even if you are feeling better. Maintain good skin hygiene. Wear support stockings to decrease edema of your legs (if indicated). If you are diabetic, please monitor your sugars closely and notify your PCP for any significant elevations beyond your baseline. PATIENT EDUCATION Practice good skin hygiene, especially with minor cuts, and report skin changes early. Be sure to wash your hands after any contact with the infected area. Some patients are just slower to respond totreatment. Risk factors for slow response including being female, having heart disease or having a higher BMI (being obese). For every 50 lbs someone is overweight, we add a day to the expected resolution time. documented in this encounter Progress Notes * Ventura Romeo PA-C - 11/07/2023 4:49 PM EDT Nursing Notes: Matheus Haas LPN 11/07/23 1616 Signed Nicky Moreau is a 88 year old female who presents to walk-in clinic today complaining of Chief Complaint Patient presents with Other Redness/bubbling/swelling L lower leg x Sep HPI 88 year old female with a PMH of hypothyroidism, OA, and bilateral LE cellulitis who presents for evaluation of possible cellulitis. Patient was accompanied by Self. She was seen here on for bilateral cellulitis, placed on keflex. She finished antibiotics a few weeks ago and symptoms started to return over the last week or two. Location: LLE Symptoms include: redness, warmth, drainage, swelling, and pain Symptoms started since September bilateral LE. She was on antibiotics for this, and was seeing wound care. She said the Left LE had a bandage and compression wrap that was removed but the RLE was not removed yet. Symptoms are: rapidly worsening Patient denies: fever and chills Prior trauma or injury to the area? Yes, explain: see above Any prior history of similar symptoms? Yes, explain: see above History of any type of resistant bacteria (i.e. MRSA, VRE, etc)? denies Any co-morbid conditions? Yes, explain: gets around in wheelchair or walker. Has some chronic foot deformities Denies SOB, CP, Palp, F/S/Ch. ROS: See HPI for pertinent positives and negatives. Review of patient's allergies indicates: Allergen Reactions Wasp Venom Edema Other Bee Venom Sulfa Antibiotics Rash Current Outpatient Medications Medication Sig Dispense Refill MULTIVITAMINS PO TABS 30 0 CITRACAL/VITAMIN D 250-200 MG-UNIT PO TABS 2 TABLETS TWICE DAILY 60 Tab 0 EPINEPHrine, anaphylaxis, (EPIPEN 2-KEN) 0.3 MG/0.3ML SOAJ For a severe reaction: Place orange end against the outer thigh, press firmly, hold in place for 10 seconds and go to the Emergency room. 2 Device 1 cycloSPORINE 0.05 % Ophthalmic Emulsion (Restasis) Instill 1 Drop into both eyes in the morning and1 Drop before bedtime. 60 Each 1 Nystatin 189357 UNIT/GM External Cream Apply topically to affected area 2 times a day. To affacted area for two weeks. 30 g 2 Levothyroxine Sodium 50 MCG Oral Tablet (Levoxyl) Take 1 Tablet by mouth every other day. Alternating with 75mcg 45 Tablet 0 Levothyroxine Sodium 75 MCG Oral Tablet (Levoxyl) Take 1 Tablet by mouth every other day. 45 Tablet0 Furosemide 20 MG Oral Tablet (Lasix) Take 1 Tablet by mouth in the morning. 30 Tablet 0 Clindamycin HCl 300 MG Oral Capsule Take 1 Capsule by mouth in the morning and 1 Capsule at noon and 1 Capsule in the evening and 1 Capsule before bedtime. Do all this for 10 days. 40 Capsule 0 No current facility-administered medications for this visit. Past Medical History: Diagnosis Date HTN, goal below 140/90 Hyperthyroidism s/p RIT Hypothyroidism post ablation Other acute rheumatic heart disease age 6 yrs Rheumatic Fever with Heart Involvement Prediabetes Rheumatic fever 12/08/2010 acute Tubular adenoma of colon Past Surgical History: Procedure Laterality Date CARPAL TUNNEL SURGERY Carpal Tunnel repair COLONOSCOPY, DIAGNOSTIC (RECTUM) 12/21/2014 adenomatous polyp, diverticulosis, repeat per PCP/COLONOSCOPY FLEXIBLE PROXIMAL DIAGNOSTIC performed by Maximino Good MD at ENDOSCOPY [facility] INFORMATION nubia cataracts LASERING OF SECONDARY CATARACT Bilateral LIGATE/CUT OVIDUCT(S) Tubal Ligation MAMMOGRAM - BILATERAL 07/20/04 birad code 2/douchette MAMMOGRAM - BILATERAL 08/01/05 birad 2 MAMMOGRAM SCREENING-BILATERAL 08/31/08 birad 2 MISCELLANEOUS ORDER ([facility] ONLY) ACT 112 FORM SIGNED; DR ARTIS (02/18/2020) NM RADIOPHARNACEUTICAL THYROID CANCER ABLATION 2012 PAP SCREEN 06/11/03 satisfactory/dr billings PAP SCREEN 06/20/04 douchette/negative PAP SCREEN 07/04/05 satisfactory/[place] PAP SCREEN 12.4.06 satisfactory for evaluation PAP SCREEN 10/01/07 satisfactory/douchette REMOVAL OF APPENDIX 01/13/2000 Dr Montanez, [facility] REMOVE CATARACT, INSERT LENS PROSTH Bilateral Dr. Lebron REPAIR DETACHED RETINA, VITRECTOMY Left 01/14/2018 PARS PLANA VITRECTOMY, AIR FLUID EXCHANGE, ENDOLASER, FLUID GAS EXCHANGE - OS 25 GAUGE performed byDavid Ivey MD at OR [facility] SEVER INNER EYE ADHESIONS, LASER Social History Tobacco Use Smoking status: Former Current packs/day: 0.00 Average packs/day: 1.5 packs/day for 13.0 years (19.5 ttl pk-yrs) Types: Cigarettes Start date: 08/06/1968 Quit date: 08/06/1981 Years since quittin.2 Smokeless tobacco: Never Substance Use Topics Alcohol use: No Vaping/E-Cigarette Use Vaping/E-Cigarette Substances Vaping/E-Cigarette Devices PHYSICAL EXAM BP 110/60 | Pulse 61 | Temp 36.3 C (97.4 F) (Tympanic) | Resp 16 | SpO2 95% General: awake, alert, no apparent distress Eyes: no proptosis, no periorbital inflammation or soft tissue edema, no orbital cellulitis Lungs: clear to auscultation, no rhonchi, no wheezes, and no crackles Heart: regular rate, regular rhythm, no rubs, no gallops, and + murmurs Skin of LLE is markedly edematous, with vesicles, calor, tenderness, +pitting. Induration is present. Drainage is present. Fluctuation is not present. Skin does have peau d'orange appearance. ASSESSMENT/PLAN Cellulitis of left lower extremity (Primary) - Clindamycin HCl 300 MG Oral Capsule; Take 1 Capsule by mouth in the morning and 1 Capsule at noonand 1 Capsule in the evening and 1 Capsule before bedtime. Do all this for 10 days. - FAMILY PRACTICE REFERRAL OP - cefTRIAXone (Rocephin) inj 1 g - HOME HEALTH REFERRAL OP She notes that she does not have anyone at home to help her with dressing changes. I do not think she will be able to take care of the dressing changes or wound herself. She was to see wound care in early Sep, but was a no-show. She states she has an appt Sunday (two days), but I do not see this on her chart. She believes it is with [facility]. Pt would benefit from home health assistance. Pt states she may not be able to get the antibiotics today, and so she will start tomorrow. Will start CTX. Will get her into [facility] tomorrow for follow-up Follow Up: Return for Patient to follow up with Primary Care Provider as directed. | For: Patient to follow up with Primary Care Provider as directed Patient instructed to contact Primary Care Provider for follow-up within 48-72 hours. Can return [facility] if unable to reach Primary Care Provider and symptoms not improving. To the ER if worsening redness, pain, high fevers/shaking chills. The border of erythema was outlined to aid in assessing response to therapy if necessary. Patient goals for plan of care were discussed Patient Instructions Take all antibiotic even if symptoms improve sooner. Stopping early increases risk of antibiotic resistance and returning infection. While wound is weeping, Change dressing daily. Warm compresses multiple times a day. You may use ibuprofen and/or tylenol for pain. Follow-up with PCP in 3 days; sooner (or return) to be evaluated with any change/worsening symptoms. To the ED if acutely worsens. PATIENT INSTRUCTIONS: FOLLOW-UP Contact PCP for appointment within 2-3 days. If you are unable to reach your PCP, you can [facility]. When you start treatment, the cellulitis (soft tissue infection) may initially worsen for a day before it stabilizes then starts to improve. You may notice continued fever, fatigue, feeling ill and some increase in redness for the first 24 hours. However, if you developworsening redness (significantly beyond the borders marked at your visit today), severe pain, high fevers or shaking chills, please go the nearest ER for evaluation. GENERAL RECOMMENDATIONS If you were prescribed an antibiotic, please finish all of it as directed - do not stop before finished even if you are feeling better. Maintain good skin hygiene. Wear support stockings to decrease edema of your legs (if indicated). If you are diabetic, please monitor your sugars closely and notify your PCP for any significant elevations beyond your baseline. PATIENT EDUCATION Practice good skin hygiene, especially with minor cuts, and report skin changes early. Be sure to wash your hands after any contact with the infected area. Some patients are just slower to respond totreatment. Risk factors for slow response including being female, having heart disease or having a higher BMI (being obese). For every 50 lbs someone is overweight, we add a day to the expected resolution time. Ventura Romeo PA-C [address] [facility] [address] documented in this encounter Nursing Notes * Matheus Haas LPN - 11/07/2023 4:13 PM EDT Nicky Moreau is a 88 year old female who presents to walk-in clinic today complaining of Chief Complaint Patient presents with Other Redness/bubbling/swelling L lower leg x Feb documented in this encounter Plan of Treatment Upcoming Encounters Date Type Department Care Team (Late st Contact Info) Description 11/08/2023 1:40 PM EDT [facility] Visit [facility] [address] [place] [address] Disha Garcia MD [address] [place] [address] 11/30/2023 1:30 PM EDT Cardiac Studies Cardiac Studies, [facility] [address] [facility] [place] [address] Scheduled Referrals Name Type Priority Associated Diagnoses Orde r Schedule FAMILY PRACTICE REFERRAL OP Referral Within 3 days (urgent) Cellulitis of left lower extremity Ordered: 11/07/2023 HOME HEALTH REFERRAL OP Referral Within 3 days (urgent) Cellulitis of left lower extremity Ordered: 11/07/2023 Health Maintenance Due Date Last Done Comments [...] D LEVEL ONCE IN A LIFETIME-USE SMARTSET# [id number] Completed 09/20/2022, 05/06/2021, 11/26/2015, Additional history exists [...] Not on filedocumented as of this encounter Visit Diagnoses Diagnosis Cellulitis of left lower extremity- Primary Cellulitis and abscess of leg, except foot documented in this encounter Administered Medications Inactive Administered Medications - up to 3 most recent administrations Medication Order MAR Action Action Date Dose Rate Site cefTRIAXone (Rocephin) inj 1 g 1 g, Intramuscular, ONCE, On Sun11/07/23 at 1700, For 1 dose Given 11/07/2023 4:39 PM EDT 1 g Dorsogluteal Left documented in this encounter Advance Directives Latest Code Status on File Code Status Date Activated Date Inactivated Comments Full Code 01/14/2018 9:12 AM 01/14/2018 5:33 PM This order reflects the patients wishes and were consensually agreed upon. Care Teams Preparole Counseling Aide Relationship Specialty Start Date End Date Marina Nieto MD [address] [place] [address] PCP - General Internal Medicine 03/18/21 documented as of this encounter"
--- OUTSIDE RECORDS SUMMARY | 2023-11-21 23:34 | External Medical Summary | Summary of Care ---
Author Name Unknown Organization [facility] Address [address] [place] [address] Phone [phone] Care Team Providers Care Nephrology Nurse Name Role Phone Marina Nieto MD Primary Care Provider [phone] Reason for Visit * Reason Comments Nutritional Services Documentation Encounter Details Date Type Department Care Team (Late st Contact Info) Description 07/18/2023 9:30 AM [facility] Nutrition Services Nutrition, [facility] [address] [facility] [address] Larisa Christensen, DARRYLN [address] [facility] [address] Allergies Active Allergy Reactions Criticality Noted Date Comments Bee Venom 02/27/2014 Sulfa Antibiotics Rash 04/16/2001 Wasp Venom Edema Other High 02/02/2015 documented as of this encounter (statuses as of 07/18/2023) Medications Medication Sig Dispensed Refills Start Date End Date Status MULTIVITAMINS PO TABS 30 0 11/25/2007 Active CITRACAL/VITAMIN D 250-200 MG-UNIT PO TABSIndications:Othe r specified prophylactic or treatment measure 2 TABLETS TWICE DAILY 60 Tab 0 06/15/2010 Active EPINEPHrine, anaphylaxis, (EPIPEN 2-KEN) 0.3 MG/0.3ML SOAJIndications:Bee sting allergy For a severe reaction: Place orange end against the outer thigh, press firmly, hold in place for 10 seconds and go to the Emergency room. 2 Device 1 02/02/2015 Active Levothyroxine Sodium 75 MCG Oral Tablet (Levoxyl) Take 1 Tablet by mouth every other day. 45 Tablet 2 01/26/2023 Active Levothyroxine Sodium 50 MCG Oral Tablet (Levoxyl) Take 1 Tablet by mouth every other day. Alternating with 75mcg 45 Tablet 2 01/26/2023 Active cycloSPORINE 0.05 % Ophthalmic Emulsion (Restasis) Instill 1 Drop into both eyes in the morning and 1 Drop before bedtime. 60 Each 1 04/28/2023 Active Nystatin [id number] UNIT/GM External CreamIndications:Can dida albicans infection Apply topically to affected area 2 times a day. To affacted area for two weeks. 30 g 2 05/01/2023 Active documented as of this encounter (statuses as of 07/18/2023) Active Problems Problem Noted Date Diagnosed Date Chronic pansinusitis 10/06/2022 Age-related osteoporosis wit hout current pathological fracture 05/03/2020 Arthritis of hand 05/03/2020 Tubular adenoma of colon 01/11/2015 Prediabetes 01/11/2015 Sciatica 01/11/2015 S/P radioactive iodine thyroid ablation 01/24/20 13 HTN, goal below 150/90 11/08/2010 CHRONIC NONALLERGIC RHINITIS 08/04/2003 Hypothyroidism Overview: post ablation documented as of this encounter (statuses as of 07/18/2023) Resolved Problems Problem Noted Date Diagnosed Date Resolved Date Other atherosclerosis of lona timmy arteries of extremities, bilateral legs 10/17/2018 09/20/2022 Sprain or strain of cervical spine 01/11/2015 11/26/2015 Rectal bleed 01/11/2015 03/18/2018 Hyperthyroidism 01/23/2013 11/28/2013 Rheumatic fever 12/08/2010 05/27/2019 Overview: acute Other osteoporosis without c urrent pathological fracture 11/08/2010 11/26/2015 Overview: ICD-10 update of inactive term Cough 08/08/2002 03/18/2018 Hyperthyroidism 05/03/2020 Overview: s/p RIT documented as of this encounter (statuses as of 07/18/2023) Immunizations Name Administration Dates Next Due COVID-19 [...] Date Smoking Tobacco: Former Cigarettes 1.5 13 Q uit: 08/06/1981 Smokeless Tobacco: Never Alcohol Use Standard [...] on file documented as of this encounter Progress Notes * Larisa Christensen RDN - 07/18/2023 9:54 AM EST Attempted to contact pt to follow-up after initial nutrition visit from June 08. I was unable to leave a message for her. Larisa Christensen RDN, Clinical Dietitian II, [facility] Clinical Nutrition Services [facility] [phone] [place] [address] Available via [employer] Portal documented in this encounter Plan of Treatment Upcoming Encounters Date Type Department Care Team (Late st Contact Info) Description 09/20/2023 3:40 PM EST Office Visit General Internal Medicine [facility] [address] [facility] [address] Marina Nieto MD [address] [facility] [place] [address] Health Maintenance Due Date Last Done Comments [...] D LEVEL ONCE IN A LIFETIME-USE SMARTSET# [id number] Completed 09/20/2022, 05/06/2021, 11/26/2015, Additional history exists [...] Not on filedocumented as of this encounter Advance Directives Latest Code Status on File Code Status Date Activated Date Inactivated Comments Full Code 01/14/2018 9:12 AM 01/14/2018 5:33 PM This order reflects the patients wishes and were consensually agreed upon. Care Teams Nephrology Nurse Relationship Specialty Start Date End Date Marina Nieto MD [address] [facility] [place] [address] PCP - General Internal Medicine 03/18/21 documented as of this encounter
--- OUTSIDE RECORDS SUMMARY | 2023-11-21 23:34 | External Medical Summary | Summary of Care ---
Author Name Unknown Organization [facility] Address [address] [place] [address] Phone [phone] Care Team Providers Care Military Administrative Technician Name Role Phone Marina Nieto MD Primary Care Provider [phone] Reason for Referral * Evaluate & Treat - Unlimited Visits (Within 30 days (routine)) - Authorized Specialty Diagnoses / Procedures Referred By Uriel maurice Referred To Contact Physical Therapy / Physical Medicine And Rehab Diagnoses Imbalance Marina Nieto MD [address] [place] [address] Referral ID Status Reason Start Date Expiration Date Visits Requested Visits Authorized [id number] Authorized Specialty Services Required 3 [phone] Question Answer Referral Priority Within 30 days (routine) Where should this appointment be scheduled? [facility] Comments Imbalance and frequent falls . Stopped posture * Evaluate & Treat - Unlimited Visits (Within 30 days (routine)) - Authorized Specialty Diagnoses / Procedures Referred By Uriel maurice Referred To Contact Dietitian / Nutrition Services Diagnoses Loss of weight Marina Nieto MD [address] [place] [address] Referral ID Status Reason Start Date Expiration Date Visits Requested Visits Authorized [id number] Authorized Specialty Services Required 3 999 999 Question Answer Referral Priority Within 30 days (routine) Where should this appointment be scheduled? [facility] What condition is the patient being seen for? All other conditions Other: Malnutrition/ Increase nutrient intake Comments Wt loss * Precert (Within 10 days (routine)) - Authorized Specialty Diagnoses / Procedures Referred By Contkathleen t Referred To Contact Cardiac Studies Diagnoses Edema, unspecified type Procedures ECHO, COMPLETE (2D), TRANS-THORACIC Marina Nieto MD [address] [place] [address] Referral ID Status Reason Start Date Expiration Date V isits Requested Visits Authorized [id number] Authorized Precert 05/24/2023 999 999 Reason for Visit * Reason Onset Date Comments Follow Up Having some leg and feet swelling. Has not fallen recently. Medication Administration 05/24/2023 Flu an d/or Pneumo Inj Encounter Details Date Type Department Care Team (Late st Contact Info) Description 05/24/2023 3:40 PM EDT Office Visit General Internal Medicine [facility] [address] [facility] [place] [address] Marina Nieto MD [address] [place] [address] Edema, unspecified type*; Loss of weight; Imbalance; Arthritis of hand; HTN, goal below 150/90; Acquired hypothyroidism; Prediabetes; S/P radioactive iodine thyroid ablation; Bilateral sciatica; Tubular adenoma of colon; Chronic pansinusitis; CHRONIC NONALLERGIC RHINITIS; Need for prophylactic vaccination and inoculation against influenza; Age-related osteoporosis without current pathological fracture Allergies Active Allergy Reactions Criticality Noted Date Comments Bee Venom 02/27/2014 Sulfa Antibiotics Rash 04/16/2001 Wasp Venom Edema Other High 02/02/2015 documented as of this encounter (statuses as of 06/03/2023) Medications Medication Sig Dispensed Refills Start Date End Date Status MULTIVITAMINS PO TABS 30 0 11/25/2007 Active CITRACAL/VITAMIN D 250-200 MG-UNIT PO TABSIndications:Ot her specified prophylactic or treatment measure 2 TABLETS TWICE DAILY 60 Tab 0 06/15/2010 Active EPINEPHrine, anaphylaxis, (EPIPEN 2-KEN) 0.3 MG/0.3ML SOAJIndications:Be e sting allergy For a severe reaction: Place [...] bedtime. 60 Each 1 04/28/2023 Active Nystatin 802208 UNIT/GM External CreamIndications:C andida albicans infection Apply topically to affected area 2 times a day. To affacted area for two weeks. 30 g 2 05/01/2023 Active amLODIPine Besylate 5 MG Oral Tablet (Norvasc)Indicatio ns:HTN, goal below 150/90,HTN, goal below 140/90 Take 0.5 Tablets by mouth in the morning. Decreased , doesn't need refill now. 90 Tablet 2 03/22/2023 3 Discontinue d(End of Procedure) documented as of this encounter (statuses as of 06/03/2023) Active Problems Problem Noted Date Diagnosed Date Chronic pansinusitis 10/06/2022 Age-related osteoporosis wit hout current pathological fracture 05/03/2020 Arthritis of hand 05/03/2020 Tubular adenoma of colon 01/11/2015 Prediabetes 01/11/2015 Sciatica 01/11/2015 S/P radioactive iodine thyroid ablation 01/24/20 13 HTN, goal below 150/90 11/08/2010 CHRONIC NONALLERGIC RHINITIS 08/04/2003 Hypothyroidism Overview: post ablation documented as of this encounter (statuses as of 06/03/2023) Resolved Problems Problem Noted Date Diagnosed Date [...] as of this encounter (statuses as of 06/03/2023) Immunizations Name Administration Dates Next Due COVID-19 mRNA, LNP-s, No Pre serve, 2-Dose Series (Moderna) 10/15/2020,09/17/2020 COVID-19, mRNA, LNP-s, PF, B ooster, 100mcg/0.5mg (Moderna) 01/30/2022,06/27/2021 Covid-19, Mrna, Lnp-s, Pf, B ivalent, 50 Mcg, IM, 12 yrs and above (Moderna) 06/05/2022 Pneumococcal Conjugate Vacc, 13 Valent (Prevnar) 11/26/2015 SEASONAL INFLUENZA, PF, 6 M & Above, IM , (FLULAVAL or FLUZONE) 04/21/2019,05/09/2018 Season Influenza, Quad, PF, Adjuvanted, 65+ Yrs, IM (FLUAD) 04/20/2020 Seasonal Influenza, Quadriva lent Hd (Fluzone Hd) [...] Sign Reading Time Taken Comments Blood Pressure 108/70 05/24/2023 4:21 PM EDT Pulse 80 05/24/2023 4:21 PM EDT Temperature 36.9 C (98.5 F) 05/24/2023 4:21 PM ED T Respiratory Rate - - Oxygen Saturation 96% 05/24/2023 4:21 PM EDT Inhaled Oxygen Concentration - - Weight 38.4 kg (84 lb 9.6 oz) 05/24/2023 4:21 PM EDT Height - - Body Mass Index 19.31 03/22/2023 5:15 PM EDT documented in this encounter Progress Notes * Marina Nieto MD - 05/24/2023 4:49 PM EDT Images from the original note were not included. History of Present Illness Nicky Moreau is a 88 year old female that presents for Follow Up (Having some leg and feet swelling. Has not fallen recently. ) and Medication Administration (Flu and/or Pneumo Inj) 88 year old female with PMH significant for HTN, CAD, PVD, post ablative hypothyroidism, colon polyp, OA presents here for recheck. Acute concern :- -urinary frequency but chronic no dysuria or abd pain -edema which is better to me since amlodipine decreased but pt not sure -concerned about wt loss . Appetite good but admits eats healthy and tries to avoid too much carb .No abd pain, SOB,f/c, night sweats , urinary symptoms Interimmedical history : BP still low despite of cutting amlodipine. No falls . AOA called but she didn't call them back Watching diet and exercise : walking can be better which she doesn't do too much due to poor balance . Appettie good Routine labs : uptodate Routine HM : agreeable to catch up Chronic medical problem: reviewed and stable Physical Exam Vitals: 05/24/23 1621 Temp: 36.9 C (98.5 F) Pulse: 80 SpO2: 96% BP: 108/70 Physical Exam Vitals and nursing note reviewed. Constitutional: General: She is not in acute distress. Appearance: She is normal weight. HENT: Head: Normocephalic. Cardiovascular: Rate and Rhythm: Normal rate and regular rhythm. Pulmonary: Effort: Pulmonary effort is normal. No respiratory distress. Breath sounds: No wheezing. Abdominal: General: Bowel sounds are normal. There is no distension. Palpations: Abdomen is soft. There is no mass. Musculoskeletal: General: Swelling (much less) present. No tenderness or signs of injury. Cervical back: Neck supple. No rigidity. Skin: General: Skin is warm. Findings: No erythema, lesion or rash. Neurological: General: No focal deficit present. Mental Status: She is alert. Motor: Weakness (both legs 4+/5 but no focal .) present. I have reviewed the following results: Assessment and Plan Edema, unspecified type Getting better and most likely from amlodipine but will make sure - ECHO, COMPLETE (2D), TRANS-THORACIC; Future Loss of weight Seem from aging with muscle loss franky with not much walking Discussed should consider to increase protein and some carb in her diet - NUTRITION-CLINICAL DIETITIAN REFERRAL OP - CBC; Future - COMPREHENSIVE METABOLIC PANEL; Future Imbalance - PHYSICAL THERAPY REFERRAL OP Arthritis of hand HTN, goal below 150/90 Stop amlodipine due to hypotension Acquired hypothyroidism Stable Continue current treatment as directed - TSH WITH FREE T4 IF INDICATED; Future Prediabetes Stable - HEMOGLOBIN A1C; Future S/P radioactive iodine thyroid ablation Bilateral sciatica Tubular adenoma of colon Chronic pansinusitis CHRONIC NONALLERGIC RHINITIS Need for prophylactic vaccination and inoculation against influenza - INFLUENZA VACC, QUAD, HIGH DOSE (FLUZONE HD) Age-related osteoporosis without current pathological fracture Rheum following Wrap-Up Time: I spent a total of 30-39 minutes (exact time 34 mins) on the date of service in preparation, delivery, and documentation of the care provided to Nicky Moreau excluding any time spent in the performance of separately billed services. * Sabina Carmichael LPN - 05/24/2023 4:21 PM EDT PRE - ADMINISTRATION DOCUMENTATION Are you experiencing any cold symptoms or fever? No Have you had Guillain-Jackson Syndrome (an illness that causes paralysis) within the last 6 weeks? No Have you had the flu shot in the past? YES Have you ever had a reaction to the flu shot? No Sabina Carmichael LPN, 05/24/2023 4:21 PM Immunization Administration Documentation Time Out Procedure Performed: Yes Patient Identified (Ask Name/Date of ): Yes Does the patient have a fever greater than 101 degrees today? No Patient allergic to latex? No VFC Stock: No Immunization(s) verified: Yes, Immunization Name: Flu, VIS Sheet(s) given: Yes Verified Side and Site: Yes Verified Shot(s) with Parent(s)/Patient: Yes documented in this encounter Nursing Notes * Sabina Carmichael LPN - 05/24/2023 4:20 PM EDT Chief Complaint Patient presents with Follow Up Having some leg and feet swelling. Has not fallen recently. documented in this encounter Plan of Treatment Upcoming Encounters Date Type Department Care Team (Late st Contact Info) Description 06/08/2023 3:00 PM EDT Nutrition Services Nutrition, [facility] [address] [place] [address] Larisa Christensen RDN [address] [place] [address] 06/11/2023 3:00 PM EST Imaging Radiology, [address] [place] [address] 06/12/2023 3:30 PM EST Cardiac Studies Cardiac Studies [address] [place] [address] 09/20/2023 3:40 PM EST Office Visit General Internal Medicine [facility] [address] [facility] [place] [address] Marina Nieto MD [address] [facility] [place] [address] Scheduled Orders Name Type Priority Associated Diagnoses Orde r Schedule ECHO, COMPLETE (2D), TRANS-THORACIC Echocardiology Routine Edema, unspecified type Expected: 05/24/2023, Expires: 06/24/2025 CBC Lab Routine Loss of weight Expected: 08/24/2023, Expires: 05/23/2024 COMPREHENSIVE METABOLIC PANEL Lab Routine Loss of weight Expected: 08/24/2023, Expires: 05/23/2024 TSH WITH FREE T4 IF INDICATED Lab Routine Acquired hypothyroidism Expected: 08/24/2023, Expires: 05/23/2024 HEMOGLOBIN A1C Lab Routine Prediabetes Expected: 08/24/2023, Expires: 05/23/2024 Scheduled Referrals Name Type Priority Associated Diagnoses Orde r Schedule NUTRITION-CLINICAL DIETITIAN REFERRAL OP Referral Within 30 days (routine) Loss of weight Ordered: 05/24/2023 PHYSICAL THERAPY REFERRAL OP Referral Within 30 days (routine) Imbalance Ordered: 05/24/2023 Health Maintenance Due Date Last Done Comments Zoster Vaccines (1 of 2) 1985 DTaP,Tdap,and Td Vaccines (2 - Td or Tdap) 10/16/2022 10/16/2012, 01/01/2004 DXA Scan 12/27/2022 12/27/2020, 12/04, 12/14/2014, Additional history exists COVID-19 Vaccine ( - season) 2023 06/05/2022, 01/30/2022, 06/27/2021, Additional history exists Depression Screening 09/20/2023 09/20/2022 TSH 09/20/2023 09/20/2022, 12/04, 05/06/2021, Additional history exists HbA1c 03/23/2024 03/23/2023, 0501/2022, 05/06/2021, Additional history exists Albumin/Creatinine Ratio 12/19/2024 12/19/2021 Pneumococcal Vaccine: 65+ Years Completed 11/26/2015, 09/23/2001 VITAMIN D LEVEL ONCE IN A LIFETIME-USE SMARTSET# [id number] Completed 09/20/2022, 05/06/2021, 11/26/2015, Additional history exists [...] as of this encounter Visit Diagnoses Diagnosis Edema, unspecified type- Primary Loss of weight Imbalance Abnormality of gait Arthritis of hand Unspecified arthropathy, hand HTN, goal below 150/90 Acquired hypothyroidism Unspecified hypothyroidism Prediabetes Other abnormal glucose S/P radioactive iodine thyroid ablation Other postprocedural status Bilateral sciatica Sciatica Tubular adenoma of colon Benign neoplasm of colon Chronic pansinusitis Other chronic sinusitis CHRONIC NONALLERGIC RHINITIS Chronic rhinitis Need for prophylactic vaccination and inoculation against influenza Age-related osteoporosis without current pathological fracture Senile osteoporosis documented in this encounter Advance Directives Latest Code Status on File Code Status Date Activated Date Inactivated Comments Full Code 01/14/2018 9:12 AM 01/14/2018 5:33 PM This order reflects the patients wishes and were consensually agreed upon. Care Teams Military Administrative Technician Relationship Specialty Start Date End Date Marina Nieto MD [address] [place] [address] [place] [address] PCP - General Internal Medicine 03/18/21 documented as of this encounter
--- OUTSIDE RECORDS SUMMARY | 2023-11-21 23:34 | External Medical Summary | Summary of Care ---
Author Name Unknown Organization [facility] Address [address] [place] [address] Phone [phone] Care Team Providers Care Crm System Administrator Name Role Phone Marina Nieto MD Primary Care Provider [phone] Reason for Visit * Reason Onset Date Comments Appointment 10/25/2023 Encounter Details Date Type Department Care Team (Late st Contact Info) Description 10/25/2023 Telephone Wound Care, [address] [address] Services, Scheduling [address] [place] [address] Appointment Allergies Active Allergy Reactions Criticality Noted Date [...] bedtime. 60 Each 1 04/28/2023 Active Nystatin 546114 UNIT/GM External CreamIndications:Can dida albicans infection Apply [...] 10/17/2023 Active Furosemide 20 MG Oral Tablet (Lasix)Indications:B ilateral lower extremity edema Take 1 Tablet by mouth in the morning. 30 Tablet 0 10/17/2023 Active documented as of this encounter (statuses [...] Pneumococcal Conjugate Vacc, 13 Valent (Prevnar) 11/26/2015 Pneumococcal Polysaccharide PPV23 (Pneumovax) 09/23/2001 Season Influenza, Quad, PF, Adjuvanted, 65+ Yrs, IM (FLUAD) 04/20/2020 Seasonal Influenza, PF, 6 M & above, IM , (FluLaval or Fluzone) 04/21/2019,05/09/2018 Seasonal Influenza, Quadriva lent Hd (Fluzone Hd) 05/24/2023,05/11/2022,05/06/2021 Seasonal Influenza, Quadriva lent, No Preserve, IM 04/24/2017,05/10/2016,05/10/2015 05/10/2017 Seasonal Influenza, Split, I IV3, With Preserve, Inj 05/19/2014,05/02/2013,05/30/2012,04/07,05/17/2010,05/12/2009,05/19/20 08,06/10/2007,06/13/2006,05/24/2005,1 ,06/03/2002 05/12/2010 TD - Tetanus/Diptheria (ADULT) 01/01/2004 TDAP (age 10 and older)(Boostrix) 10/16/2012 documented [...] on file documented as of this encounter Miscellaneous Notes * Telephone Encounter - Pallavi Hargrove OSA - 11/07/2023 8:41 AM EDT Called patient and could not get a VM. * Telephone Encounter - Susan Esparza OSA - 11/01/2023 8:15 AM EDT I attempted to contact the patient as well as her emergency contact to schedule a new wound appointment for BLE wounds. I could not LM for either #. * Telephone Encounter - Pallavi Hargrove OSA - 10/25/2023 8:32 AM EDT Called patients phone numbers in the chart and could not get a VM. When the patient calls back schedule from the for bilateral lower extremity wounds. documented in this encounter Plan of Treatment Upcoming Encounters Date Type Department Care Team (Late st Contact Info) Description 11/30/2023 1:30 PM EDT Cardiac Studies Cardiac Studies, [address] [place] [address] Health Maintenance Due Date Last Done Comments [...] D LEVEL ONCE IN A LIFETIME-USE SMARTSET# [id number] Completed 09/20/2022, 05/06/2021, 11/26/2015, Additional history exists [...] and were consensually agreed upon. Care Teams Crm System Administrator Relationship Specialty Start Date End Date Marina Nieto MD [address] [facility] [place], [place] [address] PCP - General Internal Medicine 03/18/21 documented as of this encounter
--- OUTSIDE RECORDS SUMMARY | 2023-11-21 23:34 | External Medical Summary | Summary of Care ---
Author Name Unknown Organization [facility] Address [address] [place] [address] Phone [phone] Care Team Providers Care Forestry Laborer Name Role Phone Efrain Nieto MD Primary Care Provider [phone] Reason for Visit * Reason Comments eRx-Medication Refill Encounter Details Date Type Department Care Team (Late st Contact Info) Description 10/16/2023 Refill General Internal Medicine [facility] [place] [address] [facility] [place] [id number] E[facility] [address] Allergies Active Allergy Reactions Criticality Noted Date Comments Bee Venom 02/27/2014 Sulfa Antibiotics Rash 04/16/2001 Wasp Venom Edema Other High 02/02/2015 documented as of this encounter (statuses as of 11/06/2023) Medications Medication Sig Dispensed Refills Start Date End Date Status MULTIVITAMINS PO TABS 30 0 8 Active CITRACAL/VITAMIN D 250-200 MG-UNIT PO TABSIndications:O ther specified prophylactic or treatment measure 2 TABLETS TWICE DAILY 60 Tab 0 0 Active EPINEPHrine, anaphylaxis, (EPIPEN 2-KEN) 0.3 MG/0.3ML SOAJIndications:B ee sting allergy For a severe reaction: Place orange end against the outer thigh, press firmly, hold in place for 10 seconds and go to the Emergency room. 2 Device 1 5 Active cycloSPORINE 0.05 % Ophthalmic Emulsion (Restasis) Instill 1 Drop into both eyes in the morning and 1 Drop before bedtime. 60 Each 1 3 Active Nystatin 911835 UNIT/GM External CreamIndications: Eliza albicans infection Apply topically to affected area 2 times a day. To affacted area for two weeks. 30 g 2 3 Active Levothyroxine Sodium 50 MCG Oral Tablet (Levoxyl) Take 1 Tablet by mouth every other day. Alternating with 75mcg 45 Tablet 0 4 Active Levothyroxine Sodium 75 MCG Oral Tablet (Levoxyl) Take 1 Tablet by mouth every other day. 45 Tablet 0 4 Active Levothyroxine Sodium 75 MCG Oral Tablet (Levoxyl) Take 1 Tablet by mouth every other day. 45 Tablet 2 3 10/17/19 24 Discontinued Levothyroxine Sodium 50 MCG Oral Tablet (Levoxyl) Take 1 Tablet by mouth every other day. Alternating with 75mcg 45 Tablet 2 3 10/17/19 24 Discontinued Furosemide 20 MG Oral Tablet (Lasix)Indication s:Bilateral lower extremity edema Take 1 Tablet by mouth in the morning. 30 Tablet 3 4 10/17/19 24 Discontinued(Ref ill) documented as of this encounter (statuses as of 11/06/2023) Active Problems Problem Noted Date Diagnosed Date Chronic pansinusitis 10/06/2022 Age-related osteoporosis wit hout current pathological fracture 05/03/2020 Arthritis of hand 05/03/2020 Prediabetes 01/11/2015 Sciatica 01/11/2015 History of colon polyps 01/04/2015 Overview: Tubular adenoma S/P radioactive iodine thyroid ablation 01/24/20 13 HTN, goal below 150/90 11/08/2010 CHRONIC NONALLERGIC RHINITIS 08/04/2003 Hypothyroidism Overview: post ablation documented as of this encounter (statuses as of 11/06/2023) Resolved Problems Problem Noted Date Diagnosed Date [...] as of this encounter (statuses as of 11/06/2023) Immunizations Name Administration Dates Next Due COVID-19 [...] encounter Miscellaneous Notes * Telephone Encounter - Jalyn Chauhan pedodontist - 11/06/2023 8:39 AM EDT Received message from [facility] regarding patient needing labs. Call Placed, Unable to reach pt, as therewas no answer and no VM available to leave message. Sent the patient a [employer] message to advise. Thank you for your assistance Jalyn Chauhan Controlled Area Checker II [facility] ([facility]) (Formerly Telepharm[facility]) 11/06/2023,8:39 AM * Telephone Encounter - Hilda Caicedo [facility] - 10/17/2023 1:30 PM EDTSigned Prescriptions: Disp Refills Levothyroxine Sodium 50 MCG Oral Tablet (L*45 Tab*0 Sig: Take 1 Tablet by mouth every other day. Alternating with 75mcg Authorizing Provider: EFRAIN NIETO Ordering User: HILDA CAICEDO Levothyroxine Sodium 75 MCG Oral Tablet (L*45 Tab*0 Sig: Take 1 Tablet by mouth every other day. Authorizing Provider: EFRAIN NIETO Or susanne User: HILDA CAICEDO * Telephone Encounter - Hilda Caicedo [facility] - 10/17/2023 1:29 PM EDT Provided 90 days supply with 0 refill(s). Per refill protocol patient should have [email or web address] on file within past year. Reviewed AMP report, Care Gaps/Health Maintenance, medications list, and for any routine labs typically ordered for this patient. Lab orders placed. Please contact patient to advise of labs ordered for blood draw. Fasting is not required. Advise toobtain labs before requesting the next refill. Thanks, Hilda Caicedo, PharmD Clinical Pharmacist [facility] ([facility] - Formerly Telepharm[facility]) [phone] 10/17/2023 1:29 PM documented in this encounter Plan of Treatment Upcoming Encounters Date Type Department Care Team (Late st Contact Info) Description 11/30/2023 1:30 PM EDT Cardiac Studies Cardiac Studies, [address] [place] [address] Health Maintenance Due Date Last Done Comments Zoster Vaccines (1 of 2) 1985 DTaP,Tdap,and Td Vaccines (2 - Td or Tdap) 10/16/2022 10/16/2012, 01/01/2004 DXA Scan 12/27/2022 12/27/2020, 12/04, 12/14/2014, Additional history exists COVID-19 Vaccine ( - 2022- season) 2023 06/05/2022, 01/30/2022, 06/27/2021, Additional history exists Depression Screening 09/20/2023 09/20/2022 TSH 09/20/2023 09/20/2022, 12/04, 05/06/2021, Additional history exists HbA1c 03/23/2024 03/23/2023, 12/04, 05/06/2021, Additional history exists Albumin/Creatinine Ratio 12/19/2024 12/19/2021 Pneumococcal Vaccine: 65+ Years Completed 11/26/2015, 09/23/2001 VITAMIN D LEVEL ONCE IN A LIFETIME-USE SMARTSET# [id number] Completed 09/20/2022, 05/06/2021, 11/26/2015, Additional history exists [...] and were consensually agreed upon. Care Teams Forestry Laborer Relationship Specialty Start Date End Date Efrain Nieto MD [address] [place] [address] PCP - General Internal Medicine 03/18/21 documented as of this encounter
--- OUTSIDE RECORDS SUMMARY | 2023-11-21 23:34 | External Medical Summary ---
Author Name Unknown Address Unknown Organization K01:[facility] [place] - [address] [facility] [address] Laboratory Report Ordering Provider Test Date Status AMY ZUNIGA 11/08/2023 14:45:59 Final Observation Date Value Abnormality Reference (Units ) Status HbA1C 11/08/2023 14:45:59 6.0 Above high normal 4. 0-5.6 (%) Final The use of HbA1c to monitor glycemic status is based on normal hemoglobin and HbA composition. This test should not be used in patients with abnormal hemoglobin that affects the half life of the red blood cell or the in vivo glycation rates. Glucose, estimated average 11/08/2023 14:45:59 126 Above high normal <126 (mg/dL) Pankaj parker Performing Location [facility] [place] - [address] [facility] [address]
--- OUTSIDE RECORDS SUMMARY | 2023-11-21 23:34 | External Medical Summary | Summary of Care ---
Author Name Unknown Organization [facility] Address [address] [place] [address] Phone [phone] Care Team Providers Care Glost Placer Name Role Phone Marina Nieto MD Primary Care Provider [phone] Reason for Visit * Reason Onset Date Comments Appointment 10/25/2023 Encounter Details Date Type Department Care Team (Late st Contact Info) Description 10/25/2023 Telephone Wound Care, [address] [address] Services, Scheduling [address] [place] [address] Appointment Allergies Active Allergy Reactions Criticality Noted Date Comments Bee Venom 02/27/2014 Sulfa Antibiotics Rash 04/16/2001 Wasp Venom Edema Other High 02/02/2015 documented as of this encounter (statuses as of 11/01/2023) Medications Medication Sig Dispensed Refills Start Date [...] bedtime. 60 Each 1 04/28/2023 Active Nystatin 037754 UNIT/GM External CreamIndications:Can dida albicans infection Apply [...] as of this encounter (statuses as of 11/01/2023) Active Problems Problem Noted Date Diagnosed Date Chronic pansinusitis 10/06/2022 Age-related osteoporosis wit hout current pathological fracture 05/03/2020 Arthritis of hand 05/03/2020 Prediabetes 01/11/2015 Sciatica 01/11/2015 History of colon polyps 01/04/2015 Overview: Tubular adenoma S/P radioactive iodine thyroid ablation 01/24/20 13 HTN, goal below 150/90 11/08/2010 CHRONIC NONALLERGIC RHINITIS 08/04/2003 Hypothyroidism Overview: post ablation documented as of this encounter (statuses as of 11/01/2023) Resolved Problems Problem Noted Date Diagnosed Date [...] as of this encounter (statuses as of 11/01/2023) Immunizations Name Administration Dates Next Due COVID-19 [...] encounter Miscellaneous Notes * Telephone Encounter - Susan Esparza OSA [...] 1:30 PM EDT Cardiac Studies Cardiac Studies, [facility] [address] [facility] [place] [address] Health Maintenance Due Date Last Done [...] D LEVEL ONCE IN A LIFETIME-USE SMARTSET# [id number] Completed 09/20/2022, 05/06/2021, 11/26/2015, Additional history exists [...] and were consensually agreed upon. Care Teams Glost Placer Relationship Specialty Start Date End Date Marina Nieto MD [address] [facility] [place] [address] PCP - General Internal Medicine 03/18/21 documented as of this encounter
--- OUTSIDE RECORDS SUMMARY | 2023-11-21 23:34 | External Medical Summary ---
Author Name Unknown Address Unknown Organization [id number]:[facility] - [address] [place] [address] Laboratory Report Ordering Provider Test Date Status AMY ZUNIGA 11/08/2023 14:45:59 Final Observation Date Value Abnormality Reference (Units ) Status TSH 11/08/2023 14:45:59 49.80 Above high normal 0. 27-4.20 (uIU/mL) Final Performing Location [facility] - [address] [place] [address]
--- OUTSIDE RECORDS SUMMARY | 2023-11-21 23:34 | External Medical Summary | Summary of Care ---
Author Name Unknown Organization [facility] Address [address] [facility] [place] [address] Phone [phone] Care Team Providers Care Apple Press Operator Name Role Phone Marina Nieto MD Primary Care Provider [phone] Encounter Details Date Type Department Care Team (Late st Contact Info) Description 10/10/2023 Orders Only PATIENT PORTAL DO NOT DELETE THIS DEPT USED BY N[place] SNEED [id number] Allergies Active Allergy Reactions Criticality Noted Date Comments Bee Venom 02/27/2014 Sulfa Antibiotics Rash 04/16/2001 Wasp Venom Edema Other High 02/02/2015 documented as of this encounter (statuses as of 10/10/2023) Medications Medication Sig Dispensed Refills Start Date [...] bedtime. 60 Each 1 04/28/2023 Active Nystatin 196822 UNIT/GM External CreamIndications:Ca ndida albicans infection Apply topically to affected area 2 times a day. To affacted area for two weeks. 30 g 2 05/01/2023 Active Cephalexin 500 MG Oral CapsuleIndications: Cellulitis of lower extremity, unspecified laterality Take 1 Capsule by mouth in the morning and 1 Capsule before bedtime. Do all this for 10 days. 20 Capsule 0 10/04/2023 10/14/2023 Active Furosemide 20 MG Oral Tablet (Lasix)Indications: Bilateral lower extremity edema Take 1 Tablet by mouth in the morning. 30 Tablet 3 10/04/2023 Active documented as of this encounter (statuses as of 10/10/2023) Active Problems Problem Noted Date Diagnosed Date Chronic pansinusitis 10/06/2022 Age-related osteoporosis wit hout current pathological fracture 05/03/2020 Arthritis of hand 05/03/2020 Prediabetes 01/11/2015 Sciatica 01/11/2015 History of colon polyps 01/04/2015 Overview: Tubular adenoma S/P radioactive iodine thyroid ablation 01/24/20 13 HTN, goal below 150/90 11/08/2010 CHRONIC NONALLERGIC RHINITIS 08/04/2003 Hypothyroidism Overview: post ablation documented as of this encounter (statuses as of 10/10/2023) Resolved Problems Problem Noted Date Diagnosed Date [...] as of this encounter (statuses as of 10/10/2023) Immunizations Name Administration Dates Next Due COVID-19 [...] Care Team (Late st Contact Info) Description 10/10/2023 1:00 PM EST Office Visit Wound Care, [facility] [address] [place] [address] Raya Trayolr, DPM [address] [place] [address] 11/30/2023 1:30 PM EDT Cardiac Studies Cardiac Studies, [facility] [address] [place] [address] Health Maintenance Due Date Last Done Comments [...] D LEVEL ONCE IN A LIFETIME-USE SMARTSET# [id number] Completed 09/20/2022, 05/06/2021, 11/26/2015, Additional history exists [...] and were consensually agreed upon. Care Teams Apple Press Operator Relationship Specialty Start Date End Date Marina Nieto MD [address] [place] [address] PCP - General Internal Medicine 03/18/21 documented as of this encounter
--- OUTSIDE RECORDS SUMMARY | 2023-11-21 23:34 | External Medical Summary ---
Author Name Unknown Address Unknown Organization K01:[facility] - [address] [place] [address] Laboratory Report Ordering Provider Test Date Status EFRAINVANESSASTEPAN 11/08/2023 14:45:59 Final Observation Date Value Abnormality Reference (Units ) Status T4, Free 11/08/2023 14:45:59 1.0 0.9-1.7 (n g/dL) Final Performing Location [facility] - [address] [place] [address]
--- OUTSIDE RECORDS SUMMARY | 2023-11-21 23:34 | External Medical Summary | Summary of Care ---
Author Name Unknown Organization [facility] Address [address] [place] [address] Phone [phone] Care Team Providers Care Dishroom Attendant Name Role Phone Marina Nieto MD Primary Care Provider [phone] Reason for Referral * Evaluate & Treat - Unlimited Visits (Within 3 days (urgent)) - Authorized Specialty Diagnoses / Procedures Referred By Uriel maurice Referred To Contact Wound Care Diagnoses Bilateral lower extremity edema Cellulitis of lower extremity, unspecified laterality Rylee العلي CRNP [address] [employer] [place] [address] Referral ID Status Reason Start Date Expiration Date Visits Requested Visits Authorized [id number] Authorized Specialty Services Required 10/04/2023 999 999 Question Answer Referral Priority Within 3 days (urgent) Where should this appointment be scheduled? Sergei Comments Assess for: Present over 30 days Reason for Visit * Reason Comments Other Encounter Details Date Type Department Care Team (Latest Contact Info) Description 10/04/2023 5:30 PM EST Convenient Care Visit [facility] [address] [place] [address] Rylee العلي CRNP [address] [place] [address] Bilateral lower extremity edema*; Cellulitis of lower extremity, unspecified laterality; Heart murmur Allergies Active Allergy Reactions Criticality Noted Date Comments Bee Venom 02/27/2014 Sulfa Antibiotics Rash 04/16/2001 Wasp Venom Edema Other High 02/02/2015 documented as of this encounter (statuses as of 10/04/2023) Medications Medication Sig Dispensed Refills Start Date [...] bedtime. 60 Each 1 04/28/2023 Active Nystatin 188899 UNIT/GM External CreamIndications:Ca ndida albicans infection Apply [...] as of this encounter (statuses as of 10/04/2023) Active Problems Problem Noted Date Diagnosed Date Chronic pansinusitis 10/06/2022 Age-related osteoporosis wit hout current pathological fracture 05/03/2020 Arthritis of hand 05/03/2020 Prediabetes 01/11/2015 Sciatica 01/11/2015 History of colon polyps 01/04/2015 Overview: Tubular adenoma S/P radioactive iodine thyroid ablation 01/24/20 13 HTN, goal below 150/90 11/08/2010 CHRONIC NONALLERGIC RHINITIS 08/04/2003 Hypothyroidism Overview: post ablation documented as of this encounter (statuses as of 10/04/2023) Resolved Problems Problem Noted Date Diagnosed Date [...] as of this encounter (statuses as of 10/04/2023) Immunizations Name Administration Dates Next Due COVID-19 [...] Sign Reading Time Taken Comments Blood Pressure 120/80 10/04/2023 6:54 PM EST Pulse 68 10/04/2023 6:54 PM EST Temperature 36.6 C (97.8 F) 10/04/2023 6:54 PM ES T Respiratory Rate 16 10/04/2023 6:54 PM EST Oxygen Saturation 97% 10/04/2023 6:54 PM EST Inhaled Oxygen Concentration - - Weight - - Height - - Body Mass Index - - documented in this encounter Patient Instructions * Patient Instructions* Rylee العلي CRNP - 10/04/2023 7:11 PM EST Schedule for echocardiogram (order already pended by PCP) Stop by any [facility] lab in one week (around 10/11/23) for labs. These are NOT fasting. Take antibiotic, Keflex 500mg by mouth twice a day x 10 days Take Furosemide 20mg by mouth every morning to help reduce fluid. Wound clinic referral. documented in this encounter Progress Notes * Rylee العلي CRNP - 10/04/2023 6:56 PM EST Subjective Nicky Moreau is a 88 year old female that presents for Other HPI: Patient presents with a friend/coach tour driver for 3 months of seeping wounds from her bilateral lower extremities. She reports that she has had swelling for a "long time", but not sure how long. Review of records shows that she saw her PCP in May 2023 for ongoing leg swelling. Note reports they believed it was secondary to amlodipine; however, she has been off amlodipine for quite some time and she presents with +2 BLE pitting edema. She now has multiple open sores on her right lower leg as well as one on her left lower leg seeping serous fluid. Areas are red, warm and tender to the touch. She denies any cardiac history. PCP notes show PMHx of CAD, and PVD. Of note, at the time of her Appt in may 2023 she was ordered an echocardiogram, but this was never scheduled by the patient. REVIEW OF SYSTEMS: See HPI for pertinent positives. All others negative other than those noted in the HPI. CONSTITUTIONAL: No change in weight, No weakness, No fatigue and No fevers, No sweats or chills. PULMONARY: No cough, sputum, or hemoptysis, No wheezing, No shortness or breath and No recent change in breathing. CARDIOVASCULAR: No chest pain, No dyspnea on exertion, +edema, No palpitations and No syncope. GASTROINTESTINAL: No abdominal pain, No change in bowel habits, No significant heartburn, No nausea, No vomiting, No diarrhea, No constipation, No blood in stools or black tarry stools. No dysphagia. HEMATOLOGIC: No abnormal bleeding and No bruising. NEUROLOGICAL: Normal balance, No headaches and No weakness. Objective BP 120/80 | Pulse 68 | Temp 36.6 C (97.8 F) (Tympanic) | Resp 16 | SpO2 97% There is no height or weight on file to calculate BMI. BP Readings from Last 3 Encounters: 10/04/23 120/80 05/24/23 108/70 03/22/23 104/68 Wt Readings from Last 3 Encounters: 05/24/23 38.4 kg (84 lb 9.6 oz) 03/22/23 39.7 kg (87 lb 9.6 oz) 09/20/22 41.5 kg (91 lb 9.6 oz) Physical Exam Constitutional: Appearance: She is normal weight. HENT: Head: Normocephalic and atraumatic. Cardiovascular: Rate and Rhythm: Normal rate and regular rhythm. Pulses: Normal pulses. Heart sounds: Murmur heard. Comments: 08/11 systolic murmur Pulmonary: Effort: Pulmonary effort is normal. Breath sounds: Normal breath sounds. Musculoskeletal: General: Swelling present. Comments: Patient has significant ostoporosis bent at nearly 90 degrees at the waist Skin: General: Skin is warm. Findings: Lesion present. Comments: Multiple pencil eraser size seeping lesions on both lower extremities. Neurological: General: No focal deficit present. Mental Status: She is alert and oriented to person, place, and time. None Assessment and plan 1. Bilateral lower extremity edema -Several months of bilateral lower extremity swelling (at least 6 months) -Suspect this is more than just PVD, Systolic heart mumur also appreciated on exam. -Denies any shortness of breath or PND -Recent renal function WNL. -Start furosemide 20mg PO QD and have labs drawn in one week to assess renal function and electrolytes. -Encourage low sodium diet. -Given patient's ongoing swelling, and 2+ months of seeping wounds, patient needs to be evaluated by wound clinic for continued treatment, would benefit from compression wraps as well as treatment ofwounds if not resolved with diuretics and oral antibiotics. - Furosemide 20 MG Oral Tablet (Lasix); Take 1 Tablet by mouth in the morning. Dispense: 30 Tablet;Refill: 3 - BASIC METABOLIC PANEL; Future - WOUND CARE REFERRAL OP 2. Cellulitis of lower extremity, unspecified laterality -2+ months of seeping wounds with significant pitting edema. -Concern for cardiac involvement, Echocardiogram was pended in the system, will have patient get scheduled today. - Cephalexin 500 MG Oral Capsule; Take 1 Capsule by mouth in the morning and 1 Capsule before bedtime. Do all this for 10 days. Dispense: 20 Capsule; Refill: 0 - WOUND CARE REFERRAL OP 3. Heart murmur -Denies any shortness of breath, PND, pre-syncope or syncope. -Echocardiogram order already pended in the system by PCP, will get patient scheduled today. Follow up Follow Up: Return if symptoms worsen or fail to improve. Total time today including reviewing chart before the visit, pertinent labs, imaging reports, face to face time, and documentation time was 30 minutes. The above was discussed and understanding was expressed. RALPH Rodriguez documented in this encounter Nursing Notes * Kellen Coy LPN - 10/04/2023 6:51 PM EST 88 yo female presents with open areas to BLE x1 month documented in this encounter Plan of Treatment Upcoming Encounters Date Type Department Care Team (Late st Contact Info) Description 11/30/2023 1:30 PM EDT Cardiac [address] [address] Scheduled Orders Name Type Priority Associated Diagnoses Orde r Schedule BASIC METABOLIC PANEL Lab Routine Bilateral lower extremity edema Expected: 10/11/2023, Expires: 10/03/2024 Scheduled Referrals Name Type Priority Associated Diagnoses Orde r Schedule WOUND CARE REFERRAL OP Referral Within 3 days (urgent) Bilateral lower extremity edema Cellulitis of lower extremity, unspecified laterality Ordered: 10/04/2023 Health Maintenance Due Date Last Done Comments Zoster Vaccines (1 of 2) 1985 DTaP,Tdap,and Td Vaccines (2 - Td or Tdap) 10/16/2022 10/16/2012, 01/01/2004 DXA Scan 12/27/2022 12/27/2020, 12/04, 12/14/2014, Additional history exists COVID-19 Vaccine (24 season) 2023 06/05/2022, 01/30/2022, 06/27/2021, Additional history exists Depression Screening 09/20/2023 09/20/2022 TSH 09/20/2023 09/20/2022, 12/04, 05/06/2021, Additional history exists HbA1c 03/23/2024 03/23/2023, 12/04, 05/06/2021, Additional history exists Albumin/Creatinine Ratio 12/19/2024 12/19/2021 Pneumococcal Vaccine: 65+ Years Completed 11/26/2015, 09/23/2001 VITAMIN D LEVEL ONCE IN A LIFETIME-USE SMARTSET# [id number] Completed 09/20/2022, 05/06/2021, 11/26/2015, Additional history exists [...] as of this encounter Visit Diagnoses Diagnosis Bilateral lower extremity edema- Primary Edema Cellulitis of lower extremity, unspecified laterality Heart murmur Undiagnosed cardiac murmurs documented in this encounter Advance Directives Latest Code Status on File Code Status Date Activated Date Inactivated Comments Full Code 01/14/2018 9:12 AM 01/14/2018 5:33 PM This order reflects the patients wishes and were consensually agreed upon. Care Teams Dishroom Attendant Relationship Specialty Start Date End Date Marina Nieto MD [address] [place] [address] PCP - General Internal Medicine 03/18/21 documented as of this encounter
--- OUTSIDE RECORDS SUMMARY | 2023-11-21 23:34 | External Medical Summary | Summary of Care ---
Author Name Unknown Organization [facility] Address [address] [place] [address] Phone [phone] Care Team Providers Care Windows Systems Architect Name Role Phone Marina Nieto MD Primary Care Provider [phone] Reason for Visit * Reason Onset Date Comments Appointment 10/25/2023 Encounter Details Date Type Department Care Team (Late st Contact Info) Description 10/25/2023 Telephone Wound Care, [address] [address] Services, Scheduling [address] [place] [address] Appointment Allergies Active Allergy Reactions Criticality Noted Date Comments Bee Venom 02/27/2014 Sulfa Antibiotics Rash 04/16/2001 Wasp Venom Edema Other High 02/02/2015 documented as of this encounter (statuses as of 10/25/2023) Medications Medication Sig Dispensed Refills Start Date [...] bedtime. 60 Each 1 04/28/2023 Active Nystatin 967447 UNIT/GM External CreamIndications:Can dida albicans infection Apply [...] as of this encounter (statuses as of 10/25/2023) Active Problems Problem Noted Date Diagnosed Date Chronic pansinusitis 10/06/2022 Age-related osteoporosis wit hout current pathological fracture 05/03/2020 Arthritis of hand 05/03/2020 Prediabetes 01/11/2015 Sciatica 01/11/2015 History of colon polyps 01/04/2015 Overview: Tubular adenoma S/P radioactive iodine thyroid ablation 01/24/20 13 HTN, goal below 150/90 11/08/2010 CHRONIC NONALLERGIC RHINITIS 08/04/2003 Hypothyroidism Overview: post ablation documented as of this encounter (statuses as of 10/25/2023) Resolved Problems Problem Noted Date Diagnosed Date [...] as of this encounter (statuses as of 10/25/2023) Immunizations Name Administration Dates Next Due COVID-19 [...] 1:30 PM EDT Cardiac Studies Cardiac Studies, [facility] [address] [facility] [place] [address] Health Maintenance Due Date Last Done Comments [...] D LEVEL ONCE IN A LIFETIME-USE SMARTSET# [id number] Completed 09/20/2022, 05/06/2021, 11/26/2015, Additional history exists [...] and were consensually agreed upon. Care Teams Windows Systems Architect Relationship Specialty Start Date End Date Marina Nieto MD [address] [place] [address] PCP - General Internal Medicine 03/18/21 documented as of this encounter
--- OUTSIDE RECORDS SUMMARY | 2023-11-21 23:34 | External Medical Summary ---
Author Name Unknown Address Unknown Organization K09:[facility] [place] [address] Laboratory Report Ordering Provider Test Date Status AMY ZUNIGA 11/08/2023 14:45:59 Final Observation Date Value Abnormality Reference (Units ) Status WBC, Total 11/08/2023 14:45:59 3.97 Below low normal 4. 00-10.80 (K/uL) Final RBC 11/08/2023 14:45:59 4.25 3.85-5.15 (M/uL) Final Hemoglobin 11/08/2023 14:45:59 13.3 12.0-15.3 (g/dL) Final HCT 11/08/2023 14:45:59 42.3 36.0-45.2 (%) Final MCV 11/08/2023 14:45:59 99.5 81.5-97.5 (fL) Final MCH 11/08/2023 14:45:59 31.3 27.0-34.0 (pg) Final MCHC 11/08/2023 14:45:59 31.4 32.0-36.0 (g/dL) Final RDW 11/08/2023 14:45:59 15.3 11.5-15.5 (%) Final Platelets 11/08/2023 14:45:59 200 140-400 (K /uL) Final MPV 11/08/2023 14:45:59 9.7 6.6-11.1 ( fL) Final Performing Location [facility] [place] [address]
--- OUTSIDE RECORDS SUMMARY | 2023-11-21 23:34 | External Medical Summary ---
Author Name Unknown Address Unknown Organization K09:[facility] [address] [place] [address] Laboratory Report Ordering Provider Test Date Status AMY ZUNIGA 11/08/2023 14:45:59 Final Observation Date Value Abnormality Reference (Units ) Status BUN 11/08/2023 14:45:59 37 Above high normal 6-20 (mg/dL) Final Creatinine 11/08/2023 14:45:59 0.9 0.5-1.0 (mg/dL) Final Glomerular filtration rate/1.73 sq M.predicted [Volume Rate/Area] in Serum, Plasma or Blood by Creatinine-based formula (CKD-EPI) 11/08/2023 14:45:59 62 >=60 (mL/min) Final eGFR is calculated based on the CKD-EPI 2020 equation Sodium 11/08/2023 14:45:59 140 135-146 (m mol/L) Final Potassium 11/08/2023 14:45:59 4.4 3.5-5.1 (m mol/L) Final Cl 11/08/2023 14:45:59 102 98-107 (mm ol/L) Final CO2 11/08/2023 14:45:59 30 22-32 (mmo l/L) Final Anion gap 11/08/2023 14:45:59 8 7-15 (mmol /L) Final Glucose 11/08/2023 14:45:59 111 70-120 (mg /dL) Final Albumin 11/08/2023 14:45:59 3.8 3.8-5.0 (g /dL) Final AST (Aspartate aminotransferase) 11/08/2023 14:45:59 29 10-35 (U/L) Final Alk Phos 11/08/2023 14:45:59 93 35-130 (U/ L) Final Bilirubin, Total 11/08/2023 14:45:59 0.3 <=1 .2 (mg/dL) Final Calcium 11/08/2023 14:45:59 9.9 8.4-10.2 ( mg/dL) Final Protein 11/08/2023 14:45:59 6.8 6.0-8.3 (g /dL) Final ALT (Alanine aminotransferase) 11/08/2023 14:45:59 24 10-35 (U/L) Final Performing Location [facility] [address] [place] [address]
[2023-11-22] MEDS: LEVOTHYROXINE SODIUM 75 MCG TABLET PO SCH (05:54)
[2023-11-22 06:53] LABS: Hemoglobin 13.1 g/dl (12.0-16.0); Mean Corpuscular Hemoglobin 31.3 pg (25.0-34.0); Mean Corpuscular Hgb Conc 33.6 g/dL (32.0-36.0); Mean Corpuscular Volume 93.3 fL (80.0-100.0); Mean Platelet Volume 10.4 fL (9.4-12.4); Platelet Count 177 K/uL (130-400); RDW Coefficient of Variation 14.5 % (11.5-14.5); RDW Standard Deviation 50.1 fL (36.4-46.3); Red Blood Count 4.18 M/uL (4.20-5.40)
[2023-11-22 07:24] LABS: BUN Creatinine Ratio 48.8 (10-20); Calcium 9.1 mg/dl (8.6-10.3); Creatinine Clr Calc Pharmacy 24.9 ml/min; Est GFR (Non-African American) 63.9 ml/min; Potassium 3.2 mmol/L (3.5-5.1)
[2023-11-22] MEDS: MULTIVITAMIN TAB PO SCH (07:43)
[2023-11-22] MEDS: POTASSIUM CHLORIDE CRTAB 20 MEQ TABCR PO ONE (09:36)
--- NOTE | 2023-11-22 16:15 | Hospitalist Progress Note ---
Date of Service November 22, 2023 Assessment & Plan (1) Weakness: (2) Confusion: (3) Venous stasis ulcers of both lower extremities: (4) HTN, goal below 150/90: Plan This is an 88yo F with a PMH of acquired hypothyroidism, HTN, prediabetes, sciatica, venous stasis ulcers of BLE with lymphedema who presents with worsening confusion, weakness and failure to thrive. Unintentional weight loss Failure to thrive Severe protein calorie malnutrition Poor oral intake BMI 14 Dietitian consulted Case management to help with discharge planning Venous stasis ulcers Lower extremity edema Bilateral lower extremity cellulitis --Wound cultures pending --Blood cultures negative to date --MRSA screen negative Was plan for venous reflux studies on 12/24/2023 Previously followed with wound clinic Recently was on clindamycin Empirically on IV Rocephin Continue wound care Resume home diuretics as able Ongoing memory issues Likely dementia --CT Head:There is no hemorrhage, mass effect, or evidence of acute territorial ischemia by CT criteria. Currently oriented Will benefit from neurology evaluation as outpatient Reorient frequently to minimize delirium Subacute to chronic mild T3, T4 and T5 compression fractures Several old left-sided rib fractures Incidental findings on CT Likely secondary to falls Currently no significant pain Fall precautions Monitor Hypothyroidism s/p thyroid ablation TSH on 11/07 49.80, on admission 22.399 Alternating 50mcg and 75mcg per OP records continue PO 75mcg daily May need repeat thyroid function test as outpatient Hypokalemia Replete and monitor Osteoporosis Severe scoliosis DJD of spine Continue home Ca-D supplementation H/O HTN Amlodipine discontinued 2/2 relative hypotension Monitor Prediabetes A1C 6.0% on 11/08/2023 No tight glycemic management needed DVT Px: Heparin SQ Disposition Need to be discharged to rehab facility as able Admission and Anticipated Discharge Date Admission Date: November 21, 2023 Subjective Patient is seen and examined at bedside Offers no complaints today Admits to have intermittent memory issues Oriented during my encounter Denies any chest pain, dyspnea, dizziness, nausea, vomiting, abdominal pain No other complaints Review of Systems Review of Systems: All systems reviewed & are unremarkable except as noted in Subjective Physical Exam Physical Exam: Physical Exam: Vitals signs as noted above General Appearance: Thin, frail, elderly, no apparent distress Head: normocephalic, Atraumatic Eyes: normal inspection, EOMI Neck: supple, Trachea midline Respiratory/Chest: Normal breath sounds, CTA, No accessory muscle use Cardiovascular: S1, S2, No murmur Abdomen/GI:Soft, Non tender, Bowel sounds present Extremities/Musculoskeletal:normal inspection, Trace edema, +Leg wounds Neurologic/Psych:AAOX2, grossly no focal neurological deficits Skin: normal color, warm Results & Data Results & Data Vital Signs (Past 12 Hours) Vital Signs Temp Pulse Pulse Resp BP Pulse Ox O2 Del Method 11/22/23 15:48 37.0 C 80 18 138/61 94 Room Air 11/22/23 15:02 63 11/22/23 11:35 36.5 C 54 L 18 144/72 H 90 Room Air 11/22/23 08:07 Room Air 11/22/23 08:00 61 11/22/23 07:40 37.0 C 63 17 119/47 L Laboratory Results Short CBC 11/22/23 Range/Units 06:26 WBC 10.10 (4.8-10.8) K/ul Hgb 13.1 (12.0-16.0) g/dl Hct 39.0 (37.0-47.0) % Plt Count 177 (130-400) K/uL BMP 11/22/23 06:26 Sodium 144 Potassium 3.2 L Chloride 108 H Carbon Dioxide 32 BUN 40 H Creatinine 0.82 Glucose 101 H Calcium 9.1
[2023-11-22] MEDS: cefTRIAXone SODIUM 2,000 MG in DEXTROSE 5 % MINI-B 50 ML IV SCH (17:45)
[2023-11-22] MEDS ORDERED: DOXYCYCLINE HYCLATE 100 MG CAP PO SCH (21:00)
[2023-11-23] MEDS: SODIUM CHLOR 0.45% + 20MEQ KCL 20 MEQ/1,000 ML BAG IV ONE (06:16)
[2023-11-23 07:40] LABS: Hemoglobin 12.7 g/dl (12.0-16.0); Mean Corpuscular Hemoglobin 31.4 pg (25.0-34.0); Mean Corpuscular Hgb Conc 33.4 g/dL (32.0-36.0); Mean Corpuscular Volume 93.8 fL (80.0-100.0); Mean Platelet Volume 10.6 fL (9.4-12.4); Platelet Count 153 K/uL (130-400); RDW Coefficient of Variation 14.8 % (11.5-14.5); RDW Standard Deviation 51.5 fL (36.4-46.3); Red Blood Count 4.05 M/uL (4.20-5.40); White Blood Count 6.96 K/ul (4.8-10.8)
[2023-11-23 08:04] LABS: BUN Creatinine Ratio 40.3 (10-20); Calcium 8.5 mg/dl (8.6-10.3); Creatinine Clr Calc Pharmacy 27.6 ml/min; Est GFR (Non-African American) 78.5 ml/min; Magnesium 1.8 mg/dl (1.7-2.4); Potassium 3.7 mmol/L (3.5-5.1)
--- NOTE | 2023-11-23 17:01 | Hospitalist Progress Note ---
Date of Service November 23, 2023 Assessment & Plan (1) Weakness: (2) Confusion: (3) Venous stasis ulcers of both lower extremities: (4) HTN, goal below 150/90: Plan This is an 88yo F with a PMH of acquired hypothyroidism, HTN, prediabetes, sciatica, venous stasis ulcers of BLE with lymphedema who presents with worsening confusion, weakness and failure to thrive. Unintentional weight loss Failure to thrive Severe protein calorie malnutrition Poor oral intake BMI 14 Dietitian consulted Case management to help with discharge planning Venous stasis ulcers Lower extremity edema Bilateral lower extremity cellulitis --Wound cultures pending --Blood cultures negative to date --MRSA screen negative Was plan for venous reflux studies on 12/24/2023 Previously followed with wound clinic Recently was on clindamycin Empirically on IV Rocephin, Doxy Continue wound care Resume home diuretics as able Diarrhea likely secondary to antibiotics Check stool for C. difficile Needs rehab placement Ongoing memory issues Likely dementia --CT Head:There is no hemorrhage, mass effect, or evidence of acute territorial ischemia by CT criteria. Currently oriented Will benefit from neurology evaluation as outpatient Reorient frequently to minimize delirium Subacute to chronic mild T3, T4 and T5 compression fractures Several old left-sided rib fractures Incidental findings on CT Likely secondary to falls Currently no significant pain Fall precautions Monitor Hypothyroidism s/p thyroid ablation TSH on 11/07 49.80, on admission 22.399 Alternating 50mcg and 75mcg per OP records continue levothyroxine 75mcg daily May need repeat thyroid function test as outpatient Hypokalemia Replete and monitor Osteoporosis Severe scoliosis DJD of spine Continue home Ca-D supplementation H/O HTN Amlodipine discontinued 2/2 relative hypotension Monitor Prediabetes A1C 6.0% on 11/08/2023 No tight glycemic management needed DVT Px: Heparin SQ Disposition Rehab as able Admission and Anticipated Discharge Date Admission Date: November 21, 2023 Subjective Patient is seen and examined at bedside Pleasantly confused Offers no new complaints Loose BM noted by staff Denies any chest pain, dyspnea, dizziness, nausea, vomiting, abdominal pain Waiting for rehab placement Review of Systems Review of Systems: All systems reviewed & are unremarkable except as noted in Subjective Physical Exam Physical Exam: Physical Exam: Vitals signs as noted above General Appearance: Thin, frail, elderly, no apparent distress Head: normocephalic, Atraumatic Eyes: normal inspection, EOMI Neck: supple, Trachea midline Respiratory/Chest: Normal breath sounds, CTA, No accessory muscle use Cardiovascular: S1, S2, No murmur Abdomen/GI:Soft, Non tender, Bowel sounds present Extremities/Musculoskeletal:normal inspection, Trace edema, +Leg wounds Neurologic/Psych:AAOX2, grossly no focal neurological deficits Skin: normal color, warm Results & Data Results & Data Vital Signs (Past 12 Hours) Vital Signs Temp Pulse Pulse Resp BP BP Pulse Ox 11/23/23 15:40 65 11/23/23 15:33 36.9 C 58 L 19 145/65 H 96 11/23/23 11:00 36.5 C 67 19 126/64 95 11/23/23 07:55 36.5 C 63 19 173/74 H 96 11/23/23 07:22 11/23/23 07:10 56 L O2 Del Method 11/23/23 15:40 11/23/23 15:33 Room Air 11/23/23 11:00 Room Air 11/23/23 07:55 Room Air 11/23/23 07:22 Room Air 11/23/23 07:10 Laboratory Results Short CBC 11/23/23 Range/Units 07:16 WBC 6.96 (4.8-10.8) K/ul Hgb 12.7 (12.0-16.0) g/dl Hct 38.0 (37.0-47.0) % Plt Count 153 (130-400) K/uL BMP 11/23/23 07:16 Sodium 141 Potassium 3.7 Chloride 109 H Carbon Dioxide 28 BUN 27 H Creatinine 0.67 Glucose 90 Calcium 8.5 L
[2023-11-23] MEDS: cefTRIAXone SODIUM 1,000 MG in DEXTROSE 5 % MINI-B 50 ML IV SCH (17:05)
[2023-11-23] MEDS: ADVANCED PROBIOTIC 625 MG CAPSULE PO SCH (17:05)
[2023-11-23 20:24] LABS: Cdiff Antigen Positive; Cdiff Toxin B Gene (2yr or >) Positive Cdiff Gene (Neg)
[2023-11-23 20:26] LABS: Cdiff Toxin A+B Positive Cdiff Toxin (Negative)
[2023-11-24] MEDS: VANCOMYCIN HCL 125 MG/2.5ML SOLN PO SCH (02:23)
[2023-11-24] MEDS: CHERRY SYRUP 5 ML UDP PO SCH (02:23)
[2023-11-24] MEDS: SODIUM CHLORIDE 0.9% 1,000 ML IV ONE (12:36)
--- NOTE | 2023-11-24 16:57 | Hospitalist Progress Note ---
Date of Service November 24, 2023 Assessment & Plan (1) Weakness: (2) Confusion: (3) Venous stasis ulcers of both lower extremities: (4) HTN, goal below 150/90: Plan This is an 88yo F with a PMH of acquired hypothyroidism, HTN, prediabetes, sciatica, venous stasis ulcers of BLE with lymphedema who presents with worsening confusion, weakness and failure to thrive. Unintentional weight loss Failure to thrive Severe protein calorie malnutrition Poor oral intake BMI 14 Dietitian consulted Case management to help with discharge planning Venous stasis ulcers Lower extremity edema Bilateral lower extremity cellulitis --Wound cultures growing gram-negative bacilli --Blood cultures negative to date --MRSA screen negative Was plan for venous reflux studies on 12/24/2023 Previously followed with wound clinic Recently was on clindamycin Empirically on IV Rocephin, Doxy Continue wound care Resume home diuretics as able Needs rehab placement C. difficile colitis--POA Started on p.o. vancomycin Monitor volume status Ongoing memory issues Likely dementia --CT Head:There is no hemorrhage, mass effect, or evidence of acute territorial ischemia by CT criteria. Currently oriented Will benefit from neurology evaluation as outpatient Reorient frequently to minimize delirium Subacute to chronic mild T3, T4 and T5 compression fractures Several old left-sided rib fractures Incidental findings on CT Likely secondary to falls Currently no significant pain Fall precautions Monitor Hypothyroidism s/p thyroid ablation TSH on 11/07 49.80, on admission 22.399 Alternating 50mcg and 75mcg per OP records continue levothyroxine 75mcg daily May need repeat thyroid function test as outpatient Hypokalemia Replete and monitor Osteoporosis Severe scoliosis DJD of spine Continue home Ca-D supplementation H/O HTN Amlodipine discontinued 2/2 relative hypotension Monitor Prediabetes A1C 6.0% on 11/08/2023 No tight glycemic management needed DVT Px: Heparin SQ Disposition Rehab as able Admission and Anticipated Discharge Date Admission Date: November 21, 2023 Subjective Patient is seen and examined at bedside Pleasantly confused Had 1 loose BM today States having generalized discomfort Otherwise no other complaints Denies any chest pain, dyspnea, dizziness, nausea, vomiting, abdominal pain Review of Systems Review of Systems: All systems reviewed & are unremarkable except as noted in Subjective Physical Exam Physical Exam: Physical Exam: Vitals signs as noted above General Appearance: Thin, frail, elderly, no apparent distress Head: normocephalic, Atraumatic Eyes: normal inspection, EOMI Neck: supple, Trachea midline Respiratory/Chest: Normal breath sounds, CTA, No accessory muscle use Cardiovascular: S1, S2, No murmur Abdomen/GI:Soft, Non tender, Bowel sounds present Extremities/Musculoskeletal:normal inspection, Trace edema, +Leg wounds Neurologic/Psych:AAOX2, grossly no focal neurological deficits Skin: normal color, warm Results & Data Results & Data Vital Signs (Past 12 Hours) Vital Signs Temp Pulse Pulse Resp BP Pulse Ox O2 Del Method 11/24/23 15:44 36.7 C 61 18 154/72 H 94 Room Air 11/24/23 15:00 70 11/24/23 11:30 36.3 C L 67 16 154/78 H 94 Room Air 11/24/23 08:00 Room Air 11/24/23 08:00 69 11/24/23 07:59 36.8 C 79 18 128/76 94 Room Air
[2023-11-25 06:53] LABS: Hematocrit (blood only) 37.7 % (37.0-47.0); Hemoglobin 12.9 g/dl (12.0-16.0); Mean Corpuscular Hemoglobin 31.4 pg (25.0-34.0); Mean Corpuscular Hgb Conc 34.2 g/dL (32.0-36.0); Mean Corpuscular Volume 91.7 fL (80.0-100.0); Mean Platelet Volume 10.3 fL (9.4-12.4); Platelet Count 163 K/uL (130-400); RDW Standard Deviation 50.5 fL (36.4-46.3); Red Blood Count 4.11 M/uL (4.20-5.40); White Blood Count 5.82 K/ul (4.8-10.8)
[2023-11-25 07:07] LABS: BUN Creatinine Ratio 38.1 (10-20); Calcium 8.3 mg/dl (8.6-10.3); Creatinine Clr Calc Pharmacy 32.6 ml/min; Est GFR (African American) 92.8 ml/min; Est GFR (Non-African American) 80.1 ml/min; Potassium 3.9 mmol/L (3.5-5.1)
[2023-11-25] MEDS: hydrALAZINE HCL 20 MG/ML VIAL IV PRN (08:36)
--- NOTE | 2023-11-25 16:30 | Hospitalist Progress Note ---
Date of Service November 25, 2023 Assessment & Plan (1) Weakness: (2) Confusion: (3) Venous stasis ulcers of both lower extremities: (4) HTN, goal below 150/90: Plan This is an 88yo F with a PMH of acquired hypothyroidism, HTN, prediabetes, sciatica, venous stasis ulcers of BLE with lymphedema who presents with worsening confusion, weakness and failure to thrive. Unintentional weight loss Failure to thrive Severe protein calorie malnutrition Poor oral intake BMI 14 Dietitian consulted Case management to help with discharge planning Venous stasis ulcers Lower extremity edema Bilateral lower extremity cellulitis --Wound cultures grew Alcaligenes faecalis --Blood cultures negative to date --MRSA screen negative Was plan for venous reflux studies on 12/24/2023 Previously followed with wound clinic Recently was on clindamycin Empirically on IV Rocephin, Doxy>> changed to Zosyn based on sensitivities, allergies Continue wound care Resume home diuretics as able Needs rehab placement C. difficile colitis--POA Continue p.o. vancomycin Monitor volume status Ongoing memory issues Likely dementia --CT Head:There is no hemorrhage, mass effect, or evidence of acute territorial ischemia by CT criteria. Currently oriented Will benefit from neurology evaluation as outpatient Reorient frequently to minimize delirium Subacute to chronic mild T3, T4 and T5 compression fractures Several old left-sided rib fractures Incidental findings on CT Likely secondary to falls Currently no significant pain Fall precautions Monitor Hypothyroidism s/p thyroid ablation TSH on 11/07 49.80, on admission 22.399 Alternating 50mcg and 75mcg per OP records continue levothyroxine 75mcg daily May need repeat thyroid function test as outpatient Hypokalemia Replete and monitor Osteoporosis Severe scoliosis DJD of spine Continue home Ca-D supplementation H/O HTN Amlodipine discontinued 2/2 relative hypotension Monitor Prediabetes A1C 6.0% on 11/08/2023 No tight glycemic management needed DVT Px: Heparin SQ Disposition Rehab as able Admission and Anticipated Discharge Date Admission Date: November 21, 2023 Subjective Patient is seen and examined at bedside No diarrhea today per patient Offers no new complaints Denies any chest pain, dyspnea, dizziness, nausea, vomiting, abdominal pain Wound culture grew Alcaligenes faecalis Review of Systems Review of Systems: All systems reviewed & are unremarkable except as noted in Subjective Physical Exam Physical Exam: Physical Exam: Vitals signs as noted above General Appearance: Thin, frail, elderly, no apparent distress Head: normocephalic, Atraumatic Eyes: normal inspection, EOMI Neck: supple, Trachea midline Respiratory/Chest: Normal breath sounds, CTA, No accessory muscle use Cardiovascular: S1, S2, No murmur Abdomen/GI:Soft, Non tender, Bowel sounds present Extremities/Musculoskeletal:normal inspection, Trace edema, +Leg wounds Neurologic/Psych:AAOX2, grossly no focal neurological deficits Skin: normal color, warm Results & Data Results & Data Vital Signs (Past 12 Hours) Vital Signs Temp Pulse Pulse Resp BP Pulse Ox O2 Del Method 11/25/23 15:41 36.8 C 70 18 136/68 97 Room Air 11/25/23 15:24 76 11/25/23 11:42 37.0 C 79 18 122/64 94 Room Air 11/25/23 09:25 68 11/25/23 07:55 36.2 C L 70 20 179/79 H 92 Room Air Laboratory Results Short CBC 11/25/23 Range/Units 06:11 WBC 5.82 (4.8-10.8) K/ul Hgb 12.9 (12.0-16.0) g/dl Hct 37.7 (37.0-47.0) % Plt Count 163 (130-400) K/uL BMP 11/25/23 06:11 Sodium 136 Potassium 3.9 Chloride 108 H Carbon Dioxide 25 BUN 24 H Creatinine 0.63 Glucose 107 H Calcium 8.3 L
[2023-11-25] MEDS: PIPER/TAZO 4.5g in D5W MINI-B 100 ML IV ONE (18:08)
[2023-11-25] MEDS: PIPERACILLIN/TAZOBACTAM 4.5 GM in DEXTROSE 5% MINI-B 100 ML IV SCH (23:55)
[2023-11-26] MEDS: amLODIPine BESYLATE 5 MG TAB PO SCH (07:52)
[2023-11-26 07:55] LABS: BUN Creatinine Ratio 30.7 (10-20); Calcium 8.3 mg/dl (8.6-10.3); Creatinine Clr Calc Pharmacy 30.5 ml/min; Est GFR (African American) 82.5 ml/min; Est GFR (Non-African American) 71.2 ml/min
--- NOTE | 2023-11-26 11:45 | Hospitalist Progress Note ---
Date of Service November 26, 2023 Assessment & Plan (1) Weakness: (2) Confusion: (3) Venous stasis ulcers of both lower extremities: (4) HTN, goal below 150/90: Plan This is an 88yo F with a PMH of acquired hypothyroidism, HTN, prediabetes, sciatica, venous stasis ulcers of BLE with lymphedema who presents with worsening confusion, weakness and failure to thrive. Unintentional weight loss Failure to thrive Severe protein calorie malnutrition Poor oral intake BMI 14 Dietitian consulted Case management to help with discharge planning Venous stasis ulcers Lower extremity edema Bilateral lower extremity cellulitis --Wound cultures grew Alcaligenes faecalis --Blood cultures negative to date --MRSA screen negative Was plan for venous reflux studies on 12/24/2023 Previously followed with wound clinic Recently was on clindamycin Empirically on IV Rocephin, Doxy>> changed to Zosyn based on sensitivities, allergies Plan to discharge on Levaquin (discussed with ID) Continue wound care Resume home diuretics as able Plan to discharge to rehab facility today C. difficile colitis--POA Continue p.o. vancomycin Monitor volume status Will need a longer course of antibiotic therapy given antibiotic use Ongoing memory issues Likely dementia --CT Head:There is no hemorrhage, mass effect, or evidence of acute territorial ischemia by CT criteria. Currently oriented Will benefit from neurology evaluation as outpatient Reorient frequently to minimize delirium Subacute to chronic mild T3, T4 and T5 compression fractures Several old left-sided rib fractures Incidental findings on CT Likely secondary to falls Currently no significant pain Fall precautions Monitor Hypothyroidism s/p thyroid ablation TSH on 11/07 49.80, on admission 22.399 ? Medication compliance due to memory issues Alternating 50mcg and 75mcg per OP records continue levothyroxine 75mcg daily will need repeat thyroid function test as outpatient Hypokalemia Replete and monitor Osteoporosis Severe scoliosis DJD of spine Continue home Ca-D supplementation H/O HTN Amlodipine discontinued 2/2 relative hypotension Monitor Prediabetes A1C 6.0% on 11/08/2023 No tight glycemic management needed DVT Px: Heparin SQ Disposition Rehab Admission and Anticipated Discharge Date Admission Date: November 21, 2023 Subjective Patient is seen and examined at bedside Hide 1 loose BM today Leg wound slowly improving Patient offers no new complaints Denies any chest pain, dyspnea, dizziness, nausea, vomiting, abdominal pain Review of Systems Review of Systems: All systems reviewed & are unremarkable except as noted in Subjective Physical Exam Physical Exam: Physical Exam: Vitals signs as noted above General Appearance: Thin, frail, elderly, no apparent distress Head: normocephalic, Atraumatic Eyes: normal inspection, EOMI Neck: supple, Trachea midline Respiratory/Chest: Normal breath sounds, CTA, No accessory muscle use Cardiovascular: S1, S2, No murmur Abdomen/GI:Soft, Non tender, Bowel sounds present Extremities/Musculoskeletal:normal inspection, Trace edema, +Leg wounds Neurologic/Psych:AAOX2, grossly no focal neurological deficits Skin: normal color, warm Results & Data Results & Data Vital Signs (Past 12 Hours) Vital Signs Temp Pulse Resp BP Pulse Ox O2 Del Method 11/26/23 07:52 36.6 C 61 18 149/77 H 94 Room Air 11/26/23 02:38 36.7 C 60 18 152/75 H 94 Room Air Laboratory Results [facility] 11/26/23 06:17 Sodium 137 Potassium 4.0 Chloride 108 H Carbon Dioxide 25 BUN 23 Creatinine 0.75 Glucose 90 Calcium 8.3 L
--- NOTE | 2023-11-26 11:56 | Discharge Summary ---
Date of Service November 26, 2023 Admission HPI Per Admitting Provider This is an 88yo F with a PMH of acquired hypothyroidism, HTN, prediabetes, sciatica, venous stasis ulcers of BLE with lymphedema who presents with worsening confusion and weakness. Patient is not a reliable historian and therefore history obtained from chart review. Patient lives alone and it has been noted in recent outpatient wound care notes that patient seems to have short term memory loss and there is safety concern regarding her living alone. Office of Aging has been contacted. Reportedly called her friend who called police to bring patient in today after she down on the ground for 2 days per patient. Follows with wound care for chronic venous stasis ulcers in setting of lymphedema. When asked how patient arrived in ED, she does not have a clear idea. Reports syncopal episode at wound care but became distracted and could not finish her thought. Very concerned that her current antibiotic cannot be given in the hospital. Is oriented to self but is unsure of place, time or situation. Outpatient documentation with theme of concern for patient's competence and safety remaining alone at home. Does not seem to be eating. Denies any current pain. In outpatient EMR, patient weighed 83.9 kg in 10/2023, now 34.4 kg on admission. Remainder of ROS unobtainable due to reduced cognitive state. Admission Exam Per Admitting Provider GENERAL APPEARANCE: AxOx1, confused, agitated, severe muscle wasting HEENT: NC, AT. MMM. EOMI, clear conjunctiva,poor dentition NECK: Supple without lymphadenopathy. No stiffness or restricted ROM. HEART: Normal rate and regular rhythm, normal S1/S1, no m/r/g LUNGS: CTAB, moving air well. No crackles or wheezes are heard. ABDOMEN: Soft, nontender, nondistended with good bowel sounds heard. BACK: scoliosis, severe wasting EXTREMITIES: left lower extremity with slight swelling, scattered skin tears with local erythema no overt infection, RLE with soiled/dirty bandage--declined removal NEUROLOGICAL: Grossly nonfocal. Alert and oriented, moving all 4 extremities--very confused--reports being at wound care clinis CN not formally tested but appear grossly intact.: Principal Diagnosis Venous stasis ulcers Bilateral lower extremity cellulitis C. difficile colitis Subacute to chronic mild T3, T4 and T5 compression fractures Hypothyroidism Fall Discharge Data Allergies Allergy/AdvReac Type Severity Reaction Status Date / Time Sulfa (Sulfonamide Allergy Mild Rash Unverified 11/15/23 14:26 Antibiotics) Consultations 11/21/23 15:26 ED Decision to Admit Stat Procedures Performed Laboratory Results WBC 5.82 K/ul (4.8-10.8) 11/25/23 06:11 RBC 4.11 M/uL (4.20-5.40) L 11/25/23 06:11 Hgb 12.9 g/dl (12.0-16.0) 11/25/23 06:11 Hct 37.7 % (37.0-47.0) 11/25/23 06:11 MCV 91.7 fL (80.0-100.0) 11/25/23 06:11 MCH 31.4 pg (25.0-34.0) 11/25/23 06:11 MCHC 34.2 g/dL (32.0-36.0) 11/25/23 06:11 RDW Std Deviation 50.5 fL (36.4-46.3) H 11/25/23 06:11 RDW Coeff of Ghassan 15.0 % (11.5-14.5) H 11/25/23 06:11 Plt Count 163 K/uL (130-400) 11/25/23 06:11 MPV 10.3 fL (9.4-12.4) 11/25/23 06:11 Immature Gran % (Auto) 1.9 % 11/21/23 13:15 Neut % (Auto) 83.0 % 11/21/23 13:15 Lymph % (Auto) 6.5 % 11/21/23 13:15 Brown % (Auto) 7.6 % 11/21/23 13:15 Eos % (Auto) 0.3 % 11/21/23 13:15 Baso % (Auto) 0.7 % 11/21/23 13:15 Neut # (Auto) 6.16 K/uL (1.40-6.50) 11/21/23 13:15 Lymph # (Auto) 0.48 K/uL (1.20-3.40) L 11/21/23 13:15 Brown # (Auto) 0.56 K/uL (0.11-0.59) 11/21/23 13:15 Eos # (Auto) 0.02 K/uL (0.00-0.50) 11/21/23 13:15 Baso # (Auto) 0.05 K/uL (0.00-0.20) 11/21/23 13:15 Immature Gran # (Auto) 0.14 K/uL (0.01-0.20) 11/21/23 13:15 Sodium 137 mmol/L (136-145) 11/26/23 06:17 Potassium 4.0 mmol/L (3.5-5.1) 11/26/23 06:17 Chloride 108 mmol/L (98-107) H 11/26/23 06:17 Carbon Dioxide 25 mmol/L (21-32) 11/26/23 06:17 Anion Gap 4 (3-11) 11/26/23 06:17 BUN 23 mg/dl (6-23) 11/26/23 06:17 Creatinine 0.75 mg/dl (0.6-1.2) 11/26/23 06:17 Est Cr Clr Drug Dosing 30.5 ml/min 11/26/23 06:17 Est GFR ( Amer) 82.5 ml/min 11/26/23 06:17 Est GFR (Non-Af Amer) 71.2 ml/min 11/26/23 06:17 BUN/Creatinine Ratio 30.7 (10-20) H 11/26/23 06:17 Glucose 90 mg/dl (70-99(Fasting)) 11/26/23 06:17 Lactate 1.4 mmol/L (0.4-2.0) 11/21/23 13:15 Calcium 8.3 mg/dl (8.6-10.3) L 11/26/23 06:17 Magnesium 1.8 mg/dl (1.7-2.4) 11/23/23 07:16 Total Bilirubin 0.7 mg/dl (0.2-1.0) 11/21/23 13:15 Direct Bilirubin 0.1 mg/dl (0-0.2) 11/21/23 13:15 AST 20 U/L (13-39) 11/21/23 13:15 ALT 19 U/L (7-52) 11/21/23 13:15 Alkaline Phosphatase 81 U/L (34-104) 11/21/23 13:15 Total Creatine Kinase 71 U/L (26-192) 11/21/23 13:15 Troponin I High Sens 14.3 pg/ml (0-14) H 11/21/23 13:15 B-Natriuretic Peptide 407 pg/ml (0-100) H 11/22/23 06:26 Total Protein 6.9 gm/dl (6.0-8.3) 11/21/23 13:15 Albumin 3.5 gm/dl (3.4-5.0) 11/21/23 13:15 Procalcitonin 0.35 ng/ml (0-0.5) 11/21/23 13:15 TSH 22.399 uIu/ml (0.300-4.500) H 11/21/23 13:15 Free T4 0.86 ng/dl (0.61-1.60) 11/21/23 13:15 Urine Color Yellow 11/21/23 14:45 Urine Appearance Clear (Clear) 11/21/23 14:45 Urine pH 5.0 (4.5-7.5) 11/21/23 14:45 Ur Specific [place] 1.010 (1.000-1.030) 11/21/23 14:45 Urine Protein Negative (Negative) 11/21/23 14:45 Urine Glucose (UA) Negative (Negative) 11/21/23 14:45 Urine Ketones Negative (Negative) 11/21/23 14:45 Urine Blood Negative (Negative) 11/21/23 14:45 Urine Nitrite Negative (Negative) 11/21/23 14:45 Urine Bilirubin Negative (Negative) 11/21/23 14:45 Urine Urobilinogen Negative (Negative) 11/21/23 14:45 Ur Leukocyte Esterase Negative (Negative) 11/21/23 14:45 Nasal Screen MRSA (PCR) Negative (Negative) 11/21/23 22:41 Stl C. diff Tox B Gene Positive Cdiff Gene (Neg) H 11/23/23 18:45 Stl C.difficile Tox A&B Positive Cdiff Toxin (Negative) A* 11/23/23 18:45 Impressions Abdomen/Pelvis CT 11/21/23 13:30 CT OF THE ABDOMEN AND PELVIS WITHOUT CONTRAST CLINICAL HISTORY: fall, on floor X 2 days COMPARISON STUDY: No previous studies for comparison. TECHNIQUE: Axial images of the abdomen and pelvis were obtained without IV contrast. Images were reviewed in the axial, sagittal, and coronal planes. Automated exposure control was utilized for the study. A dose lowering technique was utilized adhering to the principles of ALARA. FINDINGS: This exam is significantly compromised from a technical standpoint due to difficulty positioning and lack of contrast. No hemoperitoneum or pneumoperitoneum is present. There is moderate elevation of the right hemidiaphragm. No definite evidence for traumatic injury to the solid abdominal viscera although sensitivity diminished on this exam. There is no free fluid. No evidence for a bowel obstruction. A Quick balloon within the bladder is present. Lumbar spine levoscoliosis is incidentally noted. No acute fractures identified within the visualized skeletal structures. IMPRESSION: Exam significantly compromised from a technical standpoint, as described above. However, no acute traumatic findings identified within the abdomen or pelvis. ACT 112: Negative or not required by law. Electronically signed by: Carlos Ferreira M.D. 11/21/2023 2:[address] 11/21/23 13:[address] DOSE: HISTORY: fall TECHNIQUE: Multiaxial CT images of the cervical spine were performed and reformatted in the sagittal and coronal plane without the use of contrast. A dose lowering technique was utilized adhering to the principles of ALARA. COMPARISON: None. FINDINGS: No acute fracture or subluxation within the cervical spine. Prevertebral soft tissues and the C1-C2 interval are intact. Mild to moderate degenerative changes within the cervical spine. There is a subacute to chronic mild superior endplate compression deformity at T3. IMPRESSION: 1. No fractures within the cervical spine. 2. A subacute to chronic mild superior endplate compression deformity at T3. ACT 112: Negative or not required by law. Electronically signed by: Augustine Kerr M.D. 11/21/2023 2:[address] 11/21/23 13:30 CT OF THE CHEST WITHOUT IV CONTRAST CLINICAL HISTORY: Fall. COMPARISON STUDY: Chest radiographs October 22, 2007 and chest radiograph performed earlier today. TECHNIQUE: Axial images of the chest were obtained without IV contrast. Images were reviewed in the axial, sagittal, and coronal planes. IV contrast was not administered for this examination. Automated exposure control was utilized for the study. A dose lowering technique was utilized adhering to the principles of ALARA. FINDINGS: This exam is compromised given difficulty positioning and lack of IV contrast. No mediastinal hematoma is identified. There is no evidence for traumatic injury to the thoracic aorta on unenhanced exam. No pericardial effusion is present. Moderate elevation of the right hemidiaphragm is noted. No pneumothorax or pleural effusion is present. There is no pulmonary contusion. Several old left-sided rib fractures noted. There is chronic deformity anterior inferior right chest wall. Mild loss of height of the superior endplates of T3, T4 and T5 are noted with sclerosis. Venous gas is likely related to IV insertion. The abdomen and pelvis CT will be reported separately. IMPRESSION: 1. Technically compromised exam given difficulty positioning. No acute traumatic findings within the chest. 2. Subacute to chronic mild T3, T4 and T5 compression fractures. Several old left-sided rib fractures. 3. Moderate elevation of the right hemidiaphragm. ACT 112: Negative or not required by law. Electronically signed by: Carlos Ferreira M.D. 11/21/2023 2:49 PM Chest X-Ray 11/21/23 13:30 PORTABLE SEMIERECT AP CHEST RADIOGRAPH CLINICAL HISTORY: Sepsis. COMPARISON STUDY: Chest radiograph October 22, 2007. FINDINGS: Exam is compromised given difficulty positioning. Mild elevation of the right hemidiaphragm has slightly increased. There is no evidence for pulmonary edema. No lobar consolidation is present. There is no pneumothorax or pleural effusion. IMPRESSION: No acute cardiopulmonary findings. Exam compromised from a technical standpoint due to difficulty positioning. ACT 112: Negative or not required by law. Electronically signed by: Carlos Ferreira M.D. 11/21/2023 2:[address] 11/21/23 13:30 CT SCAN OF THE BRAIN WITHOUT IV CONTRAST CLINICAL HISTORY: Fall. COMPARISON STUDY: No priors. TECHNIQUE: Unenhanced axial CT scan of the brain is performed from the vertex to the skull base. A dose lowering technique was utilized adhering to the principles of ALARA. The Examination is degraded by inability to properly position the patient within the CT gantry. FINDINGS: Brain parenchyma: There is age-related involutional change noting moderate to advanced confluent subcortical and periventricular microangiopathic disease. There is no hemorrhage, mass effect, or evidence of acute territorial ischemia by CT criteria. Bagley-white matter differentiation is preserved. No extra-axial fluid collection is seen. Ventricles, sulci, cisterns: Prominent secondary to involutional change. Intracranial vasculature: There is atherosclerotic calcification of the cavernous carotid and vertebral arteries. Calvarium: Unremarkable. Sinuses and mastoids: The visualized paranasal sinuses are clear. The mastoid air cells are well pneumatized. Orbits: The bony orbits are grossly intact. There are bilateral ocular lens implants. IMPRESSION: There is no hemorrhage, mass effect, or evidence of acute territorial ischemia by CT criteria. ACT 112: Negative or not required by law. Electronically signed by: Mainor Ortiz M.D. 11/21/2023 2:45 PM Ordered Studies 11/21/23 13:30 CT abd pelvis wo con Stat CT cervical spine wo con Stat CT chest diagnostic wo con Stat CT head/brain wo con Stat Hospital Course (1) Weakness: (2) Confusion: (3) Venous stasis ulcers of both lower extremities: (4) HTN, goal below 150/90: Plan This is an 88yo F with a PMH of acquired hypothyroidism, HTN, prediabetes, sciatica, venous stasis ulcers of BLE with lymphedema who presents with worsening confusion, weakness and failure to thrive. Unintentional weight loss Failure to thrive Severe protein calorie malnutrition Poor oral intake BMI 14 Dietitian consulted Case management to help with discharge planning Venous stasis ulcers Lower extremity edema Bilateral lower extremity cellulitis --Wound cultures grew Alcaligenes faecalis --Blood cultures negative to date --MRSA screen negative Was plan for venous reflux studies on 12/24/2023 Previously followed with wound clinic Recently was on clindamycin Empirically on IV Rocephin, Doxy>> changed to Zosyn based on sensitivities, allergies Plan to discharge on Levaquin (discussed with ID) Continue wound care Resume home diuretics as able Plan to discharge to rehab facility today C. difficile colitis--POA Continue p.o. vancomycin Monitor volume status Will need a longer course of antibiotic therapy given antibiotic use Ongoing memory issues Likely dementia --CT Head:There is no hemorrhage, mass effect, or evidence of acute territorial ischemia by CT criteria. Currently oriented Will benefit from neurology evaluation as outpatient Reorient frequently to minimize delirium Subacute to chronic mild T3, T4 and T5 compression fractures Several old left-sided rib fractures Incidental findings on CT Likely secondary to falls Currently no significant pain Fall precautions Monitor Hypothyroidism s/p thyroid ablation TSH on 11/07 49.80, on admission 22.399 ? Medication compliance due to memory issues Alternating 50mcg and 75mcg per OP records continue levothyroxine 75mcg daily will need repeat thyroid function test as outpatient Hypokalemia Replete and monitor Osteoporosis Severe scoliosis DJD of spine Continue home Ca-D supplementation H/O HTN Amlodipine discontinued 2/2 relative hypotension Monitor Prediabetes A1C 6.0% on 11/08/2023 No tight glycemic management needed DVT Px: Heparin SQ Disposition Rehab Total Time Total Time Spent Total Time Spent (In Minutes): 65 minutes Discharge Plan Discharge Items Patient Disposition: Transfer Group Home Fac Reason For Visit: FALLS, WEAKNESS Discharge Diagnosis: Venous stasis ulcers Bilateral lower extremity cellulitis C. difficile colitis Subacute to chronic mild T3, T4 and T5 compression fractures Hypothyroidism Fall Activity: Per Instructions section Exercise/Sports: Gradually increase as tolerated Non-emergency contact: Primary Care Provider Call non-emergency contact if: you have any medication questions, your symptoms worsen, your pain is concerning for you and you have a fever Follow-up/Referrals: Marina Nieto MD [Primary Care Provider] - Diet: Lactose Intolerant Addtl Attending Provider Instructions: Follow-up with your primary care physician in 1 week upon discharge from rehab facility --Complete levofloxacin course to 250 mg daily for 5 more days -- Complete oral vancomycin 125 mg 4 times a day as prescribed for 2 more weeks -- Your final blood cultures are pending at the time of discharge. Follow-up with your physician for results. --Obtain repeat thyroid function test (TSH, free T4) in 4 weeks and follow-up with your physician for further adjustment of medications as needed Seek immediate medical attention if your symptoms reoccur or worsen Please take all medications as instructed on discharge list below. Please call if you have any questions or problems. You can reach a [facility] hospitalist on duty at 24 hours a day by calling [phone] Pending Studies at Discharge: Yes Studies:: Blood cultures Stand-Alone Forms: My [facility] Skilled Items Patient informed of condition?: Yes DNR: No Discharge Level of Care: Skilled Communicable Disease: No Discharge Prognosis: Stable Lines: None Urinary Catheter: No Medications and DC Order Prescriptions: New levofloxacin 250 mg Tablet 250 mg PO DAILY@1300 Qty: 5 0RF Rx Instructions: Start taking from 11/27/23 amlodipine [Norvasc] 5 mg Tablet 2.5 mg PO QAM Qty: 30 0RF Advanced Probiotic 625 mg (10 billion cell) Capsule 1 cap PO DAILY Qty: 30 0RF vancomycin 125 mg capsule 125 mg PO QID 14 Days Qty: 56 0RF Continued cyclosporine [Restasis] 0.05 % dropperette 1 drp ophthalmic (eye) Q12H epinephrine [EpiPen] 0.3 mg/0.3 mL auto-injector 0.3 mg IM Q4H PRN (Reason: Allergic Reaction) calcium citrate-vitamin D3 250 mg-5 mcg (200 unit) tablet 1 tab PO BID multivitamin Tablet 1 tab PO DAILY Changed levothyroxine 75 mcg capsule 75 mcg PO DAILY Qty: 30 0RF Held furosemide 20 mg tablet 20 mg PO DAILY Hold Instructions: Hold taking for 5 more days until you complete your antibiotic course. Discontinued levothyroxine 50 mcg capsule 50 mcg PO Q OTHER DAY cephalexin 500 mg capsule 500 mg PO TID 10 Days Qty: 30 0RF Discharge Orders: Discharge Order (Routine); Ordered 11/26/23 Ordered By: Victorino Banegas Admission Data Admit Date/Time: 11/21/23 15:39 Attending Provider: Victorino Banegas Admit Provider: Rose Carvalho Primary Care Provider: Marina Nieto Other Providers: Rose Carvalho; Bria Parson [facility] [place]; [facility]; [facility]
[2023-11-26] MEDS: levoFLOXacin 500 MG TAB PO ONE (12:21)
[2023-11-27] MEDS ORDERED: levoFLOXacin 250 MG TABLET PO SCH (13:00)
== END 2023-11-26 13:54 | DRG 602 ==
LOC: ED 12:46 → SUATTDRO 15:39 → EDINP 15:39 → 2S 18:33